=== PATIENT | female | born 1935 | race Two or more races ===

== ENCOUNTER 2019-05-28 21:27 | Inpatient (IN) | payer MEDICAID ==
[~2019-05-28] VITALS: Ht 147.3 cm; Wt 59.4 kg
[2019-05-28] MEDS ORDERED: MECLIZINE HCL 12.5 MG TABLET. PO ONE (22:00)
[2019-05-28] MEDS ORDERED: IV NORMAL SALINE 1000ML BAG 1,000 ML IV SCH (22:00)
[2019-05-28 22:02] LABS: BASO % 1 % (0-3); EOS # 0.1 x10^3/uL (0.0-0.7); EOS % 3 % (0-3); HEMATOCRIT 40.2 % (36.0-47.0); HEMOGLOBIN 13.6 g/dL (12.0-15.5); LYMPH # 1.7 x10^3/uL (1.0-4.8); LYMPH % 41 % (24-48); MEAN CORPUSCULAR HEMOGLOBIN 31 pg (25-35); MEAN CORPUSCULAR HGB CONC 34 g/dL (31-37); MEAN CORPUSCULAR VOLUME 92 fL (79-100); MONO # 0.4 x10^3/uL (0.0-1.1); MONO % 10 % (0-9); NEUT # 1.9 x10^3/uL (1.8-7.7); NEUT % 46 % (31-73); PLATELET COUNT 172 x10^3/uL (140-400); RED BLOOD COUNT 4.37 x10^6/uL (3.50-5.40); RED CELL DISTRIBUTION WIDTH 14.4 % (11.5-14.5); WHITE BLOOD COUNT 4.2 x10^3/uL (4.0-11.0)
[2019-05-28 22:14] LABS: CALCIUM 8.2 mg/dL (8.5-10.1); CREATININE 1.1 mg/dL (0.6-1.0); GFR 47.6; POTASSIUM 4.3 mmol/L (3.5-5.1)
--- NOTE | 2019-05-28 22:15 | PHYS DOC ---
Past Medical History Past Medical History: Arthritis, Hypertension Past Surgical History: No Surgical History Alcohol Use: None Drug Use: None Adult General Chief Complaint Chief Complaint: [facility] Patient is an 83-year-old female who presents with complaint of dizziness and generalized weakness that started about 8:30 tonight. Patient reported that she felt like she was given a pass out. Family was concerned because they thought that maybe patient was having a heart attack. Patient did not have any chest pain. She did feel off balance and a little bit nauseated. She did not vomit however. She does complain of a headache that she is unable to rate on a number scale.[] Review of Systems Review of Systems Constitutional: Denies fever or chills [] Respiratory: Complains of shortness of breath [] Cardiovascular: No additional information not addressed in HPI [] GI: Denies abdominal pain. Complains of nausea without vomiting or diarrhea [] Neurologic: [place] of headache and dizziness without focal weakness or sensory changes [] All other systems were reviewed and found to be within normal limits, except as documented in this note. Current Medications Current Medications Current Medications Medications (Trade) Dose Ordered Sig/[place] Start Time Stop Time Status Last Admin Dose Admin Meclizine HCl (Antivert) 25 mg 1X ONCE 05/28/19 22:00 05/28/19 22:01 DC 05/28/19 21:57 25 MG Sodium Chloride 1,000 ml @ 1,000 mls/hr Q1H 05/28/19 22:00 05/28/19 22:59 DC 05/28/19 21:57 1,000 MLS/HR Allergies Allergies Allergies Coded Allergies Type Severity Reaction Last Updated Verified No Known Drug Allergies 05/28/19 No Physical Exam Physical Exam Constitutional: Well developed, well nourished, no acute distress, non-toxic appearance. [] HENT: Normocephalic, atraumatic, bilateral external ears normal, oropharynx moist, no oral exudates, nose normal. [] Eyes: PERRLA, EOMI, conjunctiva normal, no discharge. [] Neck: Normal range of motion, no tenderness, supple. [] Cardiovascular: Regular rate and rhythm[] Lungs & Thorax: Bilateral breath sounds clear to auscultation [] Abdomen: Bowel sounds normal, soft, no tenderness. [] Skin: Warm, dry, no erythema, no rash. [] Extremities: No tenderness, no cyanosis, no clubbing, ROM intact. [] Neurologic: Awake and alert, normal motor function, normal sensory function, no focal deficits noted. [] Current Patient Data Vital Signs Vital Signs Date Time Temp Pulse Resp B/P (MAP) Pulse Ox O2 Delivery O2 Flow Rate FiO2 05/28/19 21:30 98.0 62 16 199/87 (124) 100 Room Air 98.0 Lab Values Laboratory Tests Test 05/28/19 21:50 05/28/19 22:34 White Blood Count 4.2 x10^3/uL (4.0-11.0) Red Blood Count 4.37 x10^6/uL (3.50-5.40) Hemoglobin 13.6 g/dL (12.0-15.5) Hematocrit 40.2 % (36.0-47.0) Mean Corpuscular Volume 92 fL (79-100) Mean Corpuscular Hemoglobin 31 pg (25-35) Mean Corpuscular Hemoglobin Concent 34 g/dL (31-37) Red Cell Distribution Width 14.4 % (11.5-14.5) Platelet Count 172 x10^3/uL (140-400) Neutrophils (%) (Auto) 46 % (31-73) Lymphocytes (%) (Auto) 41 % (24-48) Monocytes (%) (Auto) 10 % (0-9) H Eosinophils (%) (Auto) 3 % (0-3) Basophils (%) (Auto) 1 % (0-3) Neutrophils # (Auto) 1.9 x10^3/uL (1.8-7.7) Lymphocytes # (Auto) 1.7 x10^3/uL (1.0-4.8) Monocytes # (Auto) 0.4 x10^3/uL (0.0-1.1) Eosinophils # (Auto) 0.1 x10^3/uL (0.0-0.7) Basophils # (Auto) 0.0 x10^3/uL (0.0-0.2) Sodium Level 134 mmol/L (136-145) L Potassium Level 4.3 mmol/L (3.5-5.1) Chloride Level 101 mmol/L (98-107) Carbon Dioxide Level 25 mmol/L (21-32) Anion Gap 8 (6-14) Blood Urea Nitrogen 7 mg/dL (7-20) Creatinine 1.1 mg/dL (0.6-1.0) H Estimated GFR (Cockcroft-Gault) 47.6 BUN/Creatinine Ratio 6 (6-20) Glucose Level 129 mg/dL (70-99) H Calcium Level 8.2 mg/dL (8.5-10.1) L Magnesium Level 1.5 mg/dL (1.8-2.4) L Total Bilirubin 0.7 mg/dL (0.2-1.0) Aspartate Amino Transferase (AST) 39 U/L (15-37) H Alanine Aminotransferase (ALT) 37 U/L (14-59) Alkaline Phosphatase 130 U/L (46-116) H Troponin I Quantitative < 0.017 ng/mL (0.000-0.055) NU-Wsj-G-Type Natriuretic Peptide 407 pg/mL (0-449) Total Protein 7.2 g/dL (6.4-8.2) Albumin 3.8 g/dL (3.4-5.0) Albumin/Globulin Ratio 1.1 (1.0-1.7) Urine Collection Type Unknown Urine Color Yellow Urine Clarity Clear Urine pH 6.0 Urine Specific [place] <=1.005 Urine Protein Negative mg/dL (NEG-TRACE) Urine Glucose (UA) Negative mg/dL (NEG) Urine Ketones (Stick) Negative mg/dL (NEG) Urine Blood Negative (NEG) Urine Nitrite Negative (NEG) Urine Bilirubin Negative (NEG) Urine Urobilinogen Dipstick 0.2 mg/dL (0.2 mg/dL) Urine Leukocyte Esterase Large (NEG) Urine RBC 0 /HPF (0-2) Urine WBC 11-20 /HPF (0-4) Urine Squamous Epithelial Cells Mod /LPF Urine Bacteria Few /HPF (0-FEW) Laboratory Tests 05/28/19 21:50 Laboratory Tests 05/28/19 21:50 EKG EKG [] Interpretation Time: EKG demonstrates sinus rhythm with rate of 62. Radiology/Procedures Radiology/Procedures [] Impressions: PROCEDURE: CT HEAD WO CONTRAST CT HEAD WO CONTRAST History: Headache, dizziness Comparison: None. Technique: Noncontrast CT imaging was performed of the head. Exposure: One or more of the following individualized dose reduction techniques were utilized for this examination: 1. Automated exposure control 2. Adjustment of the mA and/or kV according to patient size 3. Use of iterative reconstruction technique. Findings: There is a focus of hyperdense parenchymal hemorrhage of the right thalamus about 1.2 cm AP by 1 cm transverse with adjacent edema signified by low density. There is a fairly large area of encephalomalacia with cortical involvement centered in the right frontal lobe, also some old lacunar infarcts of the bilateral basal ganglia. There is other multifocal [id number]-fi-[id number] low-density of the supratentorial parenchyma bilaterally. There is no significant midline shift. There is degree of ex vacuo dilatation of the right lateral ventricle. There is some atherosclerotic calcification of the carotid siphons bilaterally, also of the basilar artery and left intradural vertebral artery. There is patchy mild ethmoid air cell mucosal thickening. There is prominent density of the visualized right maxillary sinus, not fully included. Mastoid air cells are aerated. Impression: 1. There is focus of acute hyperdense parenchymal hemorrhage in the right thalamus. There is associated mild edema. 2. There is large old infarct with cortical involvement of the right frontal lobe, also old lacunar infarcts of the bilateral basal ganglia. Other ill-defined low-density of the supratentorial parenchyma is probably due to chronic microvascular ischemic disease in a patient this age. 3. There is prominent density of the visualized right maxillary sinus. Findings discussed with ARMIN IZQUIERDO at 05/28/2019 10:50 PM. FOR INTERNAL CODING PURPOSES RESULT CODE: (C) Electronically signed by: Kemar Whitney MD (05/28/2019 10:50 PM) [facility] Course & Med Decision Making Course & Med Decision Making Pertinent Labs and Imaging studies reviewed. (See chart for details) Patient moved to room upon arrival was evaluated by your medical staff after which workup was initiated to include blood work, chest x-ray and CT of the head without contrast. Patient's CT is returned with findings of acute hemorrhagic stroke in the right thalamus. On-call neurosurgery was contacted and Dr. Collins recommends admission to the ICU. Hospital medicine has been contacted as well and apprised of the patient. Patient will be admitted to ICU under the care of hospitalist services with consult to neurosurgery. Dragon Disclaimer Dragon Disclaimer This electronic medical record was generated, in whole or in part, using a voice recognition dictation system. Departure Departure Impression: Primary Impression: Thalamic hemorrhage with stroke Disposition: ADMITTED INPATIENT Admitting Physician: DAIN Condition: GUARDED ARMIN IZQUIERDO Jr. DO May 28, 2019 22:15
[2019-05-28 22:24] LABS: ALBUMIN 3.8 g/dL (3.4-5.0); ALBUMIN/GLOBULIN RATIO 1.1 (1.0-1.7); MAGNESIUM 1.5 mg/dL (1.8-2.4); TOTAL BILIRUBIN 0.7 mg/dL (0.2-1.0); TOTAL PROTEIN 7.2 g/dL (6.4-8.2)
[2019-05-28 22:40] LABS: BILIRUBIN,URINE NEGATIVE (NEG); CLARITY,URINE CLEAR; COLOR,URINE YELLOW; NITRITE,URINE NEGATIVE (NEG); PROTEIN,URINE NEGATIVE (NEG-TRACE); UROBILINOGEN,URINE 0.2 mg/dL (0.2 mg/dL)
[2019-05-28 22:45] LABS: BACTERIA,URINE FEW /HPF (0-FEW); RBC,URINE 0 /HPF (0-2)
[2019-05-28 22:46] LABS: SQUAMOUS EPITHELIAL CELL,UR MOD /LPF
--- NOTE | 2019-05-28 22:53 | RAD ---
CT HEAD WO CONTRAST History: Headache, dizziness Comparison: None. Technique: Noncontrast CT imaging was performed of the head. Exposure: One or more of the following individualized dose reduction techniques were utilized for this examination: 1. Automated exposure control 2. Adjustment of the mA and/or kV according to patient size 3. Use of iterative reconstruction technique. Findings: There is a focus of hyperdense parenchymal hemorrhage of the right thalamus about 1.2 cm AP by 1 cm transverse with adjacent edema signified by low density. There is a fairly large area of encephalomalacia with cortical involvement centered in the right frontal lobe, also some old lacunar infarcts of the bilateral basal ganglia. There is other multifocal xjrl-en-xfqopsvk low-density of the supratentorial parenchyma bilaterally. There is no significant midline shift. There is degree of ex vacuo dilatation of the right lateral ventricle. There is some atherosclerotic calcification of the carotid siphons bilaterally, also of the basilar artery and left intradural vertebral artery. There is patchy mild ethmoid air cell mucosal thickening. There is prominent density of the visualized right maxillary sinus, not fully included. Mastoid air cells are aerated. Impression: 1. There is focus of acute hyperdense parenchymal hemorrhage in the right thalamus. There is associated mild edema. 2. There is large old infarct with cortical involvement of the right frontal lobe, also old lacunar infarcts of the bilateral basal ganglia. Other ill-defined low-density of the supratentorial parenchyma is probably due to chronic microvascular ischemic disease in a patient this age. 3. There is prominent density of the visualized right maxillary sinus. Findings discussed with ARMIN IZQUIERDO at 05/28/2019 10:50 PM. FOR INTERNAL CODING PURPOSES RESULT CODE: (C) Electronically signed by: Kemar Whitney MD (05/28/2019 10:50 PM) [facility]
[2019-05-28] MEDS ORDERED: fentaNYL PF VIAL 100 MCG/2 ML VIAL IV PRN (23:15)
[2019-05-28] MEDS ORDERED: ONDANSETRON PF 4 MG/2 ML VIAL. IV PRN (23:15)
--- NOTE | 2019-05-28 23:41 | RAD ---
PORTABLE CHEST 1V History: Headache, dizziness Comparison: None. Findings: Single view of the chest is submitted. There is fullness of the right hilum. There is tortuous thoracic aorta. Heart size is upper limits of normal. There is mild interstitial opacity lung bases bilaterally. Trace pleural effusions are not excluded. No pneumothorax is identified. Impression: 1. There is fullness of the right hilum, lymphadenopathy not excluded better evaluated by nonemergent CT. 2. There is mild interstitial opacity near lung bases of uncertain chronicity, could be due to mild interstitial edema. Trace pleural effusions are not excluded. Electronically signed by: Kemar Whitney MD (05/28/2019 11:38 PM) [facility]
[2019-05-29] VITALS (31 sets, daily range): BP systolic 86–195; BP diastolic 44–131
[2019-05-29] MEDS: IV NORMAL SALINE 1000ML BAG 1,000 ML IV SCH ×3 (01:00→16:48)
[2019-05-29] MEDS ORDERED: LOSA-73 PO (02:18)
[2019-05-29] MEDS ORDERED: OMEP20CA10 PO (02:18)
[2019-05-29] MEDS ORDERED: ATOR20TA58 PO (02:18)
--- NOTE | 2019-05-29 03:19 | NUR ---
Patient admitted to room 110 from ED at 0050. Patient moved self from cart to bed. Monitor on, SR noted. Alert and oriented x4 per Rolan Biswas, the patient's son who is translating for patient. Follows commands appropriately. RA. Cardene gtt and MIV fluids infusing per PIV. No c/o pain or discomfort at this time. Call light within reach. Will continue to monitor.
[2019-05-29 05:39] LABS: BASO % 0 % (0-3); EOS # 0.1 x10^3/uL (0.0-0.7); EOS % 3 % (0-3); HEMATOCRIT 42.9 % (36.0-47.0); HEMOGLOBIN 14.6 g/dL (12.0-15.5); LYMPH # 1.2 x10^3/uL (1.0-4.8); LYMPH % 32 % (24-48); MEAN CORPUSCULAR HEMOGLOBIN 31 pg (25-35); MEAN CORPUSCULAR HGB CONC 34 g/dL (31-37); MEAN CORPUSCULAR VOLUME 92 fL (79-100); MONO # 0.3 x10^3/uL (0.0-1.1); MONO % 9 % (0-9); NEUT # 2.1 x10^3/uL (1.8-7.7); NEUT % 56 % (31-73); PLATELET COUNT 161 x10^3/uL (140-400); RED BLOOD COUNT 4.67 x10^6/uL (3.50-5.40); RED CELL DISTRIBUTION WIDTH 14.6 % (11.5-14.5); WHITE BLOOD COUNT 3.7 x10^3/uL (4.0-11.0)
[2019-05-29 05:59] LABS: CALCIUM 8.5 mg/dL (8.5-10.1); CREATININE 0.9 mg/dL (0.6-1.0); GFR 59.9; POTASSIUM 3.7 mmol/L (3.5-5.1)
[2019-05-29] MEDS ORDERED: ACETAMINOPHEN 500 MG TABLET PO PRN (09:15)
[2019-05-29] MEDS ORDERED: LABETALOL 20 MG/4 ML DISP.SYRIN. IVP PRN ×2 (09:15→14:30)
[2019-05-29] MEDS ORDERED: ONDANSETRON PF 4 MG/2 ML VIAL. IV PRN ×2 (09:15→14:30)
--- NOTE | 2019-05-29 09:23 | NUR ---
Notified Dr. Villa of Mg 1.4. Order received to give 2gm Mg IV.
[2019-05-29] MEDS ORDERED: MAGNESIUM SULFATE 2GM 50 ML IV ONE (09:30)
--- NOTE | 2019-05-29 09:38 | RAD ---
CT HEAD WO CONTRAST Indication: Intracranial hemorrhage. Exposure: One or more of the following individualized dose reduction techniques were utilized for this examination: 1. Automated exposure control 2. Adjustment of the mA and/or kV according to patient size 3. Use of iterative reconstruction technique. Technique: Standard imaging without intravenous contrast. Comparison: May 28, 2019. FINDINGS: Hyperdense lesion in the right thalamus compatible with hematoma is again identified measuring 1.2 AP x 1.0 cm wide by 1.4 cm height, stable in AP and lateral dimensions. Mild adjacent low-density compatible with edema is similar. No new mass effect or midline shift is identified. Area of low-density encephalomalacia in the right frontal lobe is again seen. Multiple small periventricular low-dose density foci compatible with lacunar infarcts are again seen. Low-density in the white matter bilaterally, a nonspecific finding, but which is commonly due to chronic small vessel ischemic disease in a patient of this age. Intracranial arterial calcifications. No abnormal extra-axial fluid collection. Orbits appear unremarkable. No significant scalp swelling. Partially visualized sinuses again demonstrate density within the barely visualized right maxillary sinus. Mild ethmoid sinus mucosal thickening. IMPRESSION: Right thalamic hematoma with surrounding edema is not significant changed in appearance. Electronically signed by: Chad Jackson MD (05/29/2019 9:35 AM) [facility]
[2019-05-29] MEDS: LOSARTAN POTASSIUM 50 MG TABLET. PO SCH (10:19)
[2019-05-29] MEDS: PANTOPRAZOLE 40 MG TABLET.DR. PO SCH (10:20)
--- NOTE | 2019-05-29 11:20 | PDOC ---
Provider Note Provider Note patient seen and examined in ICU c/o headaches exam:loss of vision right eye, chronic, no focal neuro deficit hypertensive, on Cardene CT head reviewed, no change in right thalamic hemorrhage old right frontal infarct BP control consult Charli and neurology non surgical will follow EVY SANDOVAL MD May 29, 2019 11:20
--- NOTE | 2019-05-29 11:47 | PDOC1 ---
History and Physical Date of Admission Date of Admission DATE: 05/29/19 TIME: 11:42 Identification/Chief Complaint Chief Complaint headache, dizzy Source Source: Caregiver, Chart review, Patient History of Present Illness History of Present Illness 83 female who only speaks K[place], but fam at bedside translates for me, dizzy and headaches yesterday and cont today so went to ER and found to have small brain hemorrhage with some mild edema and hTN emergency still needing cardene gtt at icu, She has old large ischemic infarct with huge encephalomalacia that familyu is unaware of, She ambulates well at home, I reconciled home meds thsi AM and she was able to swallow pills fine per RN. Still needing ICU bec on cardene gtt but ok to eat, NON surgical per neurosx. WIll also consult neurology. NO ASA, blood thinners etc pls My neuro exam is non focal Past Medical History Cardiovascular: HTN Past Surgical History Past Surgical History: No pertinent history Family History Family History: Hypertension Social History Smoke: No ALCOHOL: none Drugs: None Current Problem List Problem List Problems Medical Problems: (1) Thalamic hemorrhage with stroke Status: Acute Current Medications Current Medications Current Medications Sodium Chloride 1,000 ml @ 1,000 mls/hr Q1H IV Last administered on 05/28/19at 21:57; Start 05/28/19 at 22:00; Stop 05/28/19 at 22:59; Status DC Meclizine HCl (Antivert) 25 mg 1X ONCE PO Last administered on 05/28/19at 21:57; Start 05/28/19 at 22:00; Stop 05/28/19 at 22:01; Status DC Ondansetron HCl (Zofran) 4 mg PRN Q8HRS PRN IV NAUSEA/VOMITING 1ST CHOICE; Start 05/28/19 at 23:15; Stop 05/29/19 at 09:12; Status DC Fentanyl Citrate (Fentanyl 2ml Vial) 25 mcg PRN Q1HR PRN IV SEVERE PAIN 7-10; Start 05/28/19 at 23:15; Stop 05/29/19 at 23:14 Sodium Chloride 1,000 ml @ 100 mls/hr Q10H IV Last administered on 05/29/19at 05:18; Start 05/28/19 at 23:30; Stop 05/29/19 at 23:29 Nicardipine HCl 50 mg/Sodium Chloride 250 ml @ 25 mls/hr CONT PRN IV SEE I/O RECORD Last administered on 05/29/19at 00:17; Start 05/29/19 at 00:15 Magnesium Sulfate 50 ml @ 25 mls/hr 1X ONCE IV Last administered on 05/29/19at 10:20; Start 05/29/19 at 09:30; Stop 05/29/19 at 11:29; Status DC Ondansetron HCl (Zofran) 4 mg PRN Q6HRS PRN IV NAUSEA/VOMITING 1ST CHOICE; Start 05/29/19 at 09:15 Acetaminophen (Tylenol) 500 mg PRN Q6HRS PRN PO MILD PAIN / TEMP; Start 05/29/19 at 09:15 Labetalol HCl (Normodyne Iv Push) 20 mg PRN Q2HR PRN IVP HYPERTENSION; Start 05/29/19 at 09:15 Atorvastatin Calcium (Lipitor) 20 mg QHS PO ; Start 05/29/19 at 21:00 Losartan Potassium (Cozaar) 50 mg DAILY PO Last administered on 05/29/19at 10:20; Start 05/29/19 at 10:00 Pantoprazole Sodium (Protonix) 40 mg DAILYAC PO Last administered on 05/29/19at 10:20; Start 05/29/19 at 10:00 Active Scripts Active Reported Omeprazole 20 Mg Capsule. 1 Cap PO DAILY Losartan Potassium 50 Mg Tablet 50 Mg PO DAILY Atorvastatin Calcium 20 Mg Tablet 1 Tab PO DAILY Allergies Allergies: Coded Allergies: No Known Drug Allergies (Unverified , 05/28/19) ROS Review of System headache, dizzy, the rest 14 pt neg Physical Exam General: Alert, Oriented X3, Cooperative, No acute distress HEENT: Atraumatic, PERRLA, EOMI Lungs: Clear to auscultation, Normal air movement Heart: S1S2, RRR, no thrills, no rubs, no gallops, no murmurs Cardiovascular: S1, S2 Breasts: Normal, Rt breast nml w/o mass, Lt breast nml w/o mass, Nipples normal Abdomen: Normal bowel sounds, Soft, No tenderness, No hepatosplenomegaly, No masses Rectal Exam: not examined PELVIC: Nml ext genitalia Extremities: No clubbing, No cyanosis, No edema, Normal pulses, No tenderness/swelling Skin: No rashes, No breakdown, No significant lesion Neuro: Normal gait, Normal speech, Strength at 5/5 X4 ext, Normal tone, Sensation intact, Cranial nerves 3-12 NL, Reflexes 2+ Psych/Mental Status: Mental status NL, Mood NL Vitals Vitals Vital Signs Date Time Temp Pulse Resp B/P (MAP) Pulse Ox O2 Delivery O2 Flow Rate FiO2 05/29/19 11:00 96 16 151/80 (103) 97 Room Air 05/29/19 07:00 97.7 97.7 Labs Labs Laboratory Tests Test 05/28/19 21:50 05/28/19 22:34 05/29/19 04:30 05/29/19 05:00 White Blood Count 4.2 x10^3/uL (4.0-11.0) 3.7 x10^3/uL (4.0-11.0) Red Blood Count 4.37 x10^6/uL (3.50-5.40) 4.67 x10^6/uL (3.50-5.40) Hemoglobin 13.6 g/dL (12.0-15.5) 14.6 g/dL (12.0-15.5) Hematocrit 40.2 % (36.0-47.0) 42.9 % (36.0-47.0) Mean Corpuscular Volume 92 fL (79-100) 92 fL (79-100) Mean Corpuscular Hemoglobin 31 pg (25-35) 31 pg (25-35) Mean Corpuscular Hemoglobin Concent 34 g/dL (31-37) 34 g/dL (31-37) Red Cell Distribution Width 14.4 % (11.5-14.5) 14.6 % (11.5-14.5) Platelet Count 172 x10^3/uL (140-400) 161 x10^3/uL (140-400) Neutrophils (%) (Auto) 46 % (31-73) 56 % (31-73) Lymphocytes (%) (Auto) 41 % (24-48) 32 % (24-48) Monocytes (%) (Auto) 10 % (0-9) 9 % (0-9) Eosinophils (%) (Auto) 3 % (0-3) 3 % (0-3) Basophils (%) (Auto) 1 % (0-3) 0 % (0-3) Neutrophils # (Auto) 1.9 x10^3/uL (1.8-7.7) 2.1 x10^3/uL (1.8-7.7) Lymphocytes # (Auto) 1.7 x10^3/uL (1.0-4.8) 1.2 x10^3/uL (1.0-4.8) Monocytes # (Auto) 0.4 x10^3/uL (0.0-1.1) 0.3 x10^3/uL (0.0-1.1) Eosinophils # (Auto) 0.1 x10^3/uL (0.0-0.7) 0.1 x10^3/uL (0.0-0.7) Basophils # (Auto) 0.0 x10^3/uL (0.0-0.2) 0.0 x10^3/uL (0.0-0.2) Sodium Level 134 mmol/L (136-145) 140 mmol/L (136-145) Potassium Level 4.3 mmol/L (3.5-5.1) 3.7 mmol/L (3.5-5.1) Chloride Level 101 mmol/L (98-107) 104 mmol/L (98-107) Carbon Dioxide Level 25 mmol/L (21-32) 23 mmol/L (21-32) Anion Gap 8 (6-14) 13 (6-14) Blood Urea Nitrogen 7 mg/dL (7-20) 6 mg/dL (7-20) Creatinine 1.1 mg/dL (0.6-1.0) 0.9 mg/dL (0.6-1.0) Estimated GFR (Cockcroft-Gault) 47.6 59.9 BUN/Creatinine Ratio 6 (6-20) Glucose Level 129 mg/dL (70-99) 115 mg/dL (70-99) Calcium Level 8.2 mg/dL (8.5-10.1) 8.5 mg/dL (8.5-10.1) Magnesium Level 1.5 mg/dL (1.8-2.4) 1.4 mg/dL (1.8-2.4) Total Bilirubin 0.7 mg/dL (0.2-1.0) Aspartate Amino Transf (AST/SGOT) 39 U/L (15-37) Alanine Aminotransferase (ALT/SGPT) 37 U/L (14-59) Alkaline Phosphatase 130 U/L (46-116) Troponin I Quantitative < 0.017 ng/mL (0.000-0.055) [place]-Kam-N-Type Natriuretic Peptide 407 pg/mL (0-449) Total Protein 7.2 g/dL (6.4-8.2) Albumin 3.8 g/dL (3.4-5.0) Albumin/Globulin Ratio 1.1 (1.0-1.7) Urine Collection Type Unknown Urine Color Yellow Urine Clarity Clear Urine pH 6.0 Urine Specific [place] <=1.005 Urine Protein Negative mg/dL (NEG-TRACE) Urine Glucose (UA) Negative mg/dL (NEG) Urine Ketones (Stick) Negative mg/dL (NEG) Urine Blood Negative (NEG) Urine Nitrite Negative (NEG) Urine Bilirubin Negative (NEG) Urine Urobilinogen Dipstick 0.2 mg/dL (0.2 mg/dL) Urine Leukocyte Esterase Large (NEG) Urine RBC 0 /HPF (0-2) Urine WBC 11-20 /HPF (0-4) Urine Squamous Epithelial Cells Mod /LPF Urine Bacteria Few /HPF (0-FEW) Laboratory Tests Test 05/28/19 21:50 05/28/19 22:34 05/29/19 04:30 05/29/19 05:00 White Blood Count 4.2 x10^3/uL (4.0-11.0) 3.7 x10^3/uL (4.0-11.0) Red Blood Count 4.37 x10^6/uL (3.50-5.40) 4.67 x10^6/uL (3.50-5.40) Hemoglobin 13.6 g/dL (12.0-15.5) 14.6 g/dL (12.0-15.5) Hematocrit 40.2 % (36.0-47.0) 42.9 % (36.0-47.0) Mean Corpuscular Volume 92 fL (79-100) 92 fL (79-100) Mean Corpuscular Hemoglobin 31 pg (25-35) 31 pg (25-35) Mean Corpuscular Hemoglobin Concent 34 g/dL (31-37) 34 g/dL (31-37) Red Cell Distribution Width 14.4 % (11.5-14.5) 14.6 % (11.5-14.5) Platelet Count 172 x10^3/uL (140-400) 161 x10^3/uL (140-400) Neutrophils (%) (Auto) 46 % (31-73) 56 % (31-73) Lymphocytes (%) (Auto) 41 % (24-48) 32 % (24-48) Monocytes (%) (Auto) 10 % (0-9) 9 % (0-9) Eosinophils (%) (Auto) 3 % (0-3) 3 % (0-3) Basophils (%) (Auto) 1 % (0-3) 0 % (0-3) Neutrophils # (Auto) 1.9 x10^3/uL (1.8-7.7) 2.1 x10^3/uL (1.8-7.7) Lymphocytes # (Auto) 1.7 x10^3/uL (1.0-4.8) 1.2 x10^3/uL (1.0-4.8) Monocytes # (Auto) 0.4 x10^3/uL (0.0-1.1) 0.3 x10^3/uL (0.0-1.1) Eosinophils # (Auto) 0.1 x10^3/uL (0.0-0.7) 0.1 x10^3/uL (0.0-0.7) Basophils # (Auto) 0.0 x10^3/uL (0.0-0.2) 0.0 x10^3/uL (0.0-0.2) Sodium Level 134 mmol/L (136-145) 140 mmol/L (136-145) Potassium Level 4.3 mmol/L (3.5-5.1) 3.7 mmol/L (3.5-5.1) Chloride Level 101 mmol/L (98-107) 104 mmol/L (98-107) Carbon Dioxide Level 25 mmol/L (21-32) 23 mmol/L (21-32) Anion Gap 8 (6-14) 13 (6-14) Blood Urea Nitrogen 7 mg/dL (7-20) 6 mg/dL (7-20) Creatinine 1.1 mg/dL (0.6-1.0) 0.9 mg/dL (0.6-1.0) Estimated GFR (Cockcroft-Gault) 47.6 59.9 BUN/Creatinine Ratio 6 (6-20) Glucose Level 129 mg/dL (70-99) 115 mg/dL (70-99) Calcium Level 8.2 mg/dL (8.5-10.1) 8.5 mg/dL (8.5-10.1) Magnesium Level 1.5 mg/dL (1.8-2.4) 1.4 mg/dL (1.8-2.4) Total Bilirubin 0.7 mg/dL (0.2-1.0) Aspartate Amino Transf (AST/SGOT) 39 U/L (15-37) Alanine Aminotransferase (ALT/SGPT) 37 U/L (14-59) Alkaline Phosphatase 130 U/L (46-116) Troponin I Quantitative < 0.017 ng/mL (0.000-0.055) GJ-Enq-O-Type Natriuretic Peptide 407 pg/mL (0-449) Total Protein 7.2 g/dL (6.4-8.2) Albumin 3.8 g/dL (3.4-5.0) Albumin/Globulin Ratio 1.1 (1.0-1.7) Urine Collection Type Unknown Urine Color Yellow Urine Clarity Clear Urine pH 6.0 Urine Specific [place] <=1.005 Urine Protein Negative mg/dL (NEG-TRACE) Urine Glucose (UA) Negative mg/dL (NEG) Urine Ketones (Stick) Negative mg/dL (NEG) Urine Blood Negative (NEG) Urine Nitrite Negative (NEG) Urine Bilirubin Negative (NEG) Urine Urobilinogen Dipstick 0.2 mg/dL (0.2 mg/dL) Urine Leukocyte Esterase Large (NEG) Urine RBC 0 /HPF (0-2) Urine WBC 11-20 /HPF (0-4) Urine Squamous Epithelial Cells Mod /LPF Urine Bacteria Few /HPF (0-FEW) VTE Prophylaxis Ordered VTE Prophylaxis Devices: Contraindicated VTE Pharmacological Prophylaxi: Contraindicated Assessment/Plan Assessment/Plan small hemorrhagic CVA OLd large ischemic cva with encephalomalacia but clinically no residuals HTN emergency POA MOd PCM Plan: 2MN KEep icu bec cardene gtt Interval CT head Consult neurosx and neurology Control BP PT/.OT Ok to eat I ahve reconciled home BP meds (she runs high usually per son relay) Dw BARGE HAND at bedside and son cc 30 VIVIEN VILLANUEVA MD May 29, 2019 11:47
--- NOTE | 2019-05-29 14:19 | PDOC2 ---
NEUROLOGY CONSULT Date of Admission Date of Admission DATE: 05/29/19 TIME: 14:12 Reason for Consult Reason for Consult: Thalamic hemorrhage Referring Physician Referring Physician: Dr. Amaya Source Source: Chart review History of Present Illness History of Present Illness The patient is an 83-year-old female came to the emergency department last night with dizziness, headaches, and weakness. 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 No seizures have been noted. Family is not available when I see the patient. Past Medical History Cardiovascular: HTN, Hyperlipidemia GI: GERD Musculoskeletal: Osteoarthritis Past Surgical History Past Surgical History: No pertinent history Family History Family History: Other (unobtainable) Current Medications Current Medications Current Medications Sodium Chloride 1,000 ml @ 1,000 mls/hr Q1H IV Last administered on 05/28/19at 21:57; Start 05/28/19 at 22:00; Stop 05/28/19 at 22:59; Status DC Meclizine HCl (Antivert) 25 mg 1X ONCE PO Last administered on 05/28/19at 21:57; Start 05/28/19 at 22:00; Stop 05/28/19 at 22:01; Status DC Ondansetron HCl (Zofran) 4 mg PRN Q8HRS PRN IV NAUSEA/VOMITING 1ST CHOICE; Start 05/28/19 at 23:15; Stop 05/29/19 at 09:12; Status DC Fentanyl Citrate (Fentanyl 2ml Vial) 25 mcg PRN Q1HR PRN IV SEVERE PAIN 7-10; Start 05/28/19 at 23:15; Stop 05/29/19 at 23:14 Sodium Chloride 1,000 ml @ 100 mls/hr Q10H IV Last administered on 05/29/19at 05:18; Start 05/28/19 at 23:30; Stop 05/29/19 at 23:29 Nicardipine HCl 50 mg/Sodium Chloride 250 ml @ 25 mls/hr CONT PRN IV SEE I/O RECORD Last administered on 05/29/19at 00:17; Start 05/29/19 at 00:15 Magnesium Sulfate 50 ml @ 25 mls/hr 1X ONCE IV Last administered on 05/29/19at 10:20; Start 05/29/19 at 09:30; Stop 05/29/19 at 11:29; Status DC Ondansetron HCl (Zofran) 4 mg PRN Q6HRS PRN IV NAUSEA/VOMITING 1ST CHOICE; Start 05/29/19 at 09:15 Acetaminophen (Tylenol) 500 mg PRN Q6HRS PRN PO MILD PAIN / TEMP; Start 05/29/19 at 09:15 Labetalol HCl (Normodyne Iv Push) 20 mg PRN Q2HR PRN IVP HYPERTENSION; Start 05/29/19 at 09:15 Atorvastatin Calcium (Lipitor) 20 mg QHS PO ; Start 05/29/19 at 21:00 Losartan Potassium (Cozaar) 50 mg DAILY PO Last administered on 05/29/19at 10:20; Start 05/29/19 at 10:00 Pantoprazole Sodium (Protonix) 40 mg DAILYAC PO Last administered on 05/29/19at 10:20; Start 05/29/19 at 10:00 Active Scripts Active Reported Omeprazole 20 Mg Capsule.dr 1 Cap PO DAILY Losartan Potassium 50 Mg Tablet 50 Mg PO DAILY Atorvastatin Calcium 20 Mg Tablet 1 Tab PO DAILY Allergies Allergies: Coded Allergies: No Known Drug Allergies (Unverified , 05/28/19) ROS Review of System unobtainable Physical Exam Physical Examination General: Well-developed, well-nourished female in no acute distress HEENT: Normocephalic and�atraumatic.Temporal arteries�pulsatile and nontender.� Neck: Supple without bruit, no meningismus� Musculoskeletal: Stability:�see neurologic. Gait exam:�see neurologic. Tone:�see neurologic.�Strength:�see neurologic.� Neurological: Mental Status:�orientation, memory, attention span/concentration, language, fund of knowledge: follows pantomimed commands, does not speak [place]. Cranial Nerves:�Pupils equal and reactive to light, extraocular movements are�intact, visual wilde are full to threat. Reported right-eye vision loss not found. Facial sensation is normal. There is no facial asymmetry. Vestibulo-ocular reflex is intact. Palate elevates and tongue protrudes in midline. All other cranial related problems are negative except as mentioned before.�Reflexes:�2+ and symmetric with flexor plantar responses. Motor:�4/5 strength with normal tone and bulk. Coordination:�Finger-nose finger and hjjk-es-eoje testing are normal. Poorly cooperative with rapid alternating movements and fine finger movements are intact. Gait:�not tested. Sensory:�Normal pinprick, vibration, light touch, proprioception.� Vitals VITALS Vital Signs Date Time Temp Pulse Resp B/P (MAP) Pulse Ox O2 Delivery O2 Flow Rate FiO2 05/29/19 13:00 70 16 107/60 (76) 96 Room Air 05/29/19 12:00 98.3 98.3 Labs Labs Laboratory Tests Test 05/28/19 21:50 05/28/19 22:34 05/29/19 04:30 05/29/19 05:00 White Blood Count 4.2 x10^3/uL (4.0-11.0) 3.7 x10^3/uL (4.0-11.0) Red Blood Count 4.37 x10^6/uL (3.50-5.40) 4.67 x10^6/uL (3.50-5.40) Hemoglobin 13.6 g/dL (12.0-15.5) 14.6 g/dL (12.0-15.5) Hematocrit 40.2 % (36.0-47.0) 42.9 % (36.0-47.0) Mean Corpuscular Volume 92 fL (79-100) 92 fL (79-100) Mean Corpuscular Hemoglobin 31 pg (25-35) 31 pg (25-35) Mean Corpuscular Hemoglobin Concent 34 g/dL (31-37) 34 g/dL (31-37) Red Cell Distribution Width 14.4 % (11.5-14.5) 14.6 % (11.5-14.5) Platelet Count 172 x10^3/uL (140-400) 161 x10^3/uL (140-400) Neutrophils (%) (Auto) 46 % (31-73) 56 % (31-73) Lymphocytes (%) (Auto) 41 % (24-48) 32 % (24-48) Monocytes (%) (Auto) 10 % (0-9) 9 % (0-9) Eosinophils (%) (Auto) 3 % (0-3) 3 % (0-3) Basophils (%) (Auto) 1 % (0-3) 0 % (0-3) Neutrophils # (Auto) 1.9 x10^3/uL (1.8-7.7) 2.1 x10^3/uL (1.8-7.7) Lymphocytes # (Auto) 1.7 x10^3/uL (1.0-4.8) 1.2 x10^3/uL (1.0-4.8) Monocytes # (Auto) 0.4 x10^3/uL (0.0-1.1) 0.3 x10^3/uL (0.0-1.1) Eosinophils # (Auto) 0.1 x10^3/uL (0.0-0.7) 0.1 x10^3/uL (0.0-0.7) Basophils # (Auto) 0.0 x10^3/uL (0.0-0.2) 0.0 x10^3/uL (0.0-0.2) Sodium Level 134 mmol/L (136-145) 140 mmol/L (136-145) Potassium Level 4.3 mmol/L (3.5-5.1) 3.7 mmol/L (3.5-5.1) Chloride Level 101 mmol/L (98-107) 104 mmol/L (98-107) Carbon Dioxide Level 25 mmol/L (21-32) 23 mmol/L (21-32) Anion Gap 8 (6-14) 13 (6-14) Blood Urea Nitrogen 7 mg/dL (7-20) 6 mg/dL (7-20) Creatinine 1.1 mg/dL (0.6-1.0) 0.9 mg/dL (0.6-1.0) Estimated GFR (Cockcroft-Gault) 47.6 59.9 BUN/Creatinine Ratio 6 (6-20) Glucose Level 129 mg/dL (70-99) 115 mg/dL (70-99) Calcium Level 8.2 mg/dL (8.5-10.1) 8.5 mg/dL (8.5-10.1) Magnesium Level 1.5 mg/dL (1.8-2.4) 1.4 mg/dL (1.8-2.4) Total Bilirubin 0.7 mg/dL (0.2-1.0) Aspartate Amino Transf (AST/SGOT) 39 U/L (15-37) Alanine Aminotransferase (ALT/SGPT) 37 U/L (14-59) Alkaline Phosphatase 130 U/L (46-116) Troponin I Quantitative < 0.017 ng/mL (0.000-0.055) UH-Vyo-F-Type Natriuretic Peptide 407 pg/mL (0-449) Total Protein 7.2 g/dL (6.4-8.2) Albumin 3.8 g/dL (3.4-5.0) Albumin/Globulin Ratio 1.1 (1.0-1.7) Urine Collection Type Unknown Urine Color Yellow Urine Clarity Clear Urine pH 6.0 Urine Specific [place] <=1.005 Urine Protein Negative mg/dL (NEG-TRACE) Urine Glucose (UA) Negative mg/dL (NEG) Urine Ketones (Stick) Negative mg/dL (NEG) Urine Blood Negative (NEG) Urine Nitrite Negative (NEG) Urine Bilirubin Negative (NEG) Urine Urobilinogen Dipstick 0.2 mg/dL (0.2 mg/dL) Urine Leukocyte Esterase Large (NEG) Urine RBC 0 /HPF (0-2) Urine WBC 11-20 /HPF (0-4) Urine Squamous Epithelial Cells Mod /LPF Urine Bacteria Few /HPF (0-FEW) Laboratory Tests Test 05/28/19 21:50 05/28/19 22:34 05/29/19 04:30 05/29/19 05:00 White Blood Count 4.2 x10^3/uL (4.0-11.0) 3.7 x10^3/uL (4.0-11.0) Red Blood Count 4.37 x10^6/uL (3.50-5.40) 4.67 x10^6/uL (3.50-5.40) Hemoglobin 13.6 g/dL (12.0-15.5) 14.6 g/dL (12.0-15.5) Hematocrit 40.2 % (36.0-47.0) 42.9 % (36.0-47.0) Mean Corpuscular Volume 92 fL (79-100) 92 fL (79-100) Mean Corpuscular Hemoglobin 31 pg (25-35) 31 pg (25-35) Mean Corpuscular Hemoglobin Concent 34 g/dL (31-37) 34 g/dL (31-37) Red Cell Distribution Width 14.4 % (11.5-14.5) 14.6 % (11.5-14.5) Platelet Count 172 x10^3/uL (140-400) 161 x10^3/uL (140-400) Neutrophils (%) (Auto) 46 % (31-73) 56 % (31-73) Lymphocytes (%) (Auto) 41 % (24-48) 32 % (24-48) Monocytes (%) (Auto) 10 % (0-9) 9 % (0-9) Eosinophils (%) (Auto) 3 % (0-3) 3 % (0-3) Basophils (%) (Auto) 1 % (0-3) 0 % (0-3) Neutrophils # (Auto) 1.9 x10^3/uL (1.8-7.7) 2.1 x10^3/uL (1.8-7.7) Lymphocytes # (Auto) 1.7 x10^3/uL (1.0-4.8) 1.2 x10^3/uL (1.0-4.8) Monocytes # (Auto) 0.4 x10^3/uL (0.0-1.1) 0.3 x10^3/uL (0.0-1.1) Eosinophils # (Auto) 0.1 x10^3/uL (0.0-0.7) 0.1 x10^3/uL (0.0-0.7) Basophils # (Auto) 0.0 x10^3/uL (0.0-0.2) 0.0 x10^3/uL (0.0-0.2) Sodium Level 134 mmol/L (136-145) 140 mmol/L (136-145) Potassium Level 4.3 mmol/L (3.5-5.1) 3.7 mmol/L (3.5-5.1) Chloride Level 101 mmol/L (98-107) 104 mmol/L (98-107) Carbon Dioxide Level 25 mmol/L (21-32) 23 mmol/L (21-32) Anion Gap 8 (6-14) 13 (6-14) Blood Urea Nitrogen 7 mg/dL (7-20) 6 mg/dL (7-20) Creatinine 1.1 mg/dL (0.6-1.0) 0.9 mg/dL (0.6-1.0) Estimated GFR (Cockcroft-Gault) 47.6 59.9 BUN/Creatinine Ratio 6 (6-20) Glucose Level 129 mg/dL (70-99) 115 mg/dL (70-99) Calcium Level 8.2 mg/dL (8.5-10.1) 8.5 mg/dL (8.5-10.1) Magnesium Level 1.5 mg/dL (1.8-2.4) 1.4 mg/dL (1.8-2.4) Total Bilirubin 0.7 mg/dL (0.2-1.0) Aspartate Amino Transf (AST/SGOT) 39 U/L (15-37) Alanine Aminotransferase (ALT/SGPT) 37 U/L (14-59) Alkaline Phosphatase 130 U/L (46-116) Troponin I Quantitative < 0.017 ng/mL (0.000-0.055) FF-Tiz-G-Type Natriuretic Peptide 407 pg/mL (0-449) Total Protein 7.2 g/dL (6.4-8.2) Albumin 3.8 g/dL (3.4-5.0) Albumin/Globulin Ratio 1.1 (1.0-1.7) Urine Collection Type Unknown Urine Color Yellow Urine Clarity Clear Urine pH 6.0 Urine Specific [place] <=1.005 Urine Protein Negative mg/dL (NEG-TRACE) Urine Glucose (UA) Negative mg/dL (NEG) Urine Ketones (Stick) Negative mg/dL (NEG) Urine Blood Negative (NEG) Urine Nitrite Negative (NEG) Urine Bilirubin Negative (NEG) Urine Urobilinogen Dipstick 0.2 mg/dL (0.2 mg/dL) Urine Leukocyte Esterase Large (NEG) Urine RBC 0 /HPF (0-2) Urine WBC 11-20 /HPF (0-4) Urine Squamous Epithelial Cells Mod /LPF Urine Bacteria Few /HPF (0-FEW) Images Images CT HEAD WO CONTRAST 05/28 History: Headache, dizziness Comparison: None. Technique: Noncontrast CT imaging was performed of the head. Exposure: One or more of the following individualized dose reduction techniques were utilized for this examination: 1. Automated exposure control 2. Adjustment of the mA and/or kV according to patient size 3. Use of iterative reconstruction technique. Findings: There is a focus of hyperdense parenchymal hemorrhage of the right thalamus about 1.2 cm AP by 1 cm transverse with adjacent edema signified by low density. There is a fairly large area of encephalomalacia with cortical involvement centered in the right frontal lobe, also some old lacunar infarcts of the bilateral basal ganglia. There is other multifocal iaot-pe-wauvatlz low-density of the supratentorial parenchyma bilaterally. There is no significant midline shift. There is degree of ex vacuo dilatation of the right lateral ventricle. There is some atherosclerotic calcification of the carotid siphons bilaterally, also of the basilar artery and left intradural vertebral artery. There is patchy mild ethmoid air cell mucosal thickening. There is prominent density of the visualized right maxillary sinus, not fully included. Mastoid air cells are aerated. Impression: 1. There is focus of acute hyperdense parenchymal hemorrhage in the right thalamus. There is associated mild edema. 2. There is large old infarct with cortical involvement of the right frontal lobe, also old lacunar infarcts of the bilateral basal ganglia. Other ill-defined low-density of the supratentorial parenchyma is probably due to chronic microvascular ischemic disease in a patient this age. 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 Possibly transfer to floor tomorrow depending on her status. Thank you for letting me help with the patient�s care. MARIAMA COLÓN MD May 29, 2019 14:19
[2019-05-29] MEDS ORDERED: PHARMACY TO REVIEW MEDS MC PRN (14:30)
[2019-05-29] MEDS ORDERED: hydrALAZINE 20 MG/ML VIAL. IVP PRN (14:30)
[2019-05-29] MEDS ORDERED: ACETAMINOPHEN 650 MG SUPP.RECT. PR PRN (14:30)
--- NOTE | 2019-05-29 15:38 | NUR ---
Patient refuses tray brought by dietary. Informed son that patient refused tray. Son states that she doesn't like the food. I explained that she didn't even look at it. Son states that she doesn't like [place] food but provides her with [employer] food.
--- NOTE | 2019-05-29 17:53 | NUR ---
Dr. Garcia notified of inability to get accurate NIH stroke score on patient d/t language barrier and son not accurately translating the instructions to the patient. 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 Dizziness is resolving according to the son and the headache is still there but is improving a little.
--- NOTE | 2019-05-29 17:57 | NUR ---
Patient declines hospital dinner tray and son states that the patient will eat the food that he has brought in.
[2019-05-29] MEDS: ATORVASTATIN CALCIUM 20 MG TABLET PO SCH (21:24)
[2019-05-30] VITALS (13 sets, daily range): BP systolic 90–135; BP diastolic 56–90
--- NOTE | 2019-05-30 04:41 | NUR ---
NIH scale was performed with the assistance of clinic charge nurse [place]if[place]. This RN speaks hmong and was able to communicate with pt. Pt score a 2 on the assessment. Will communicate information to day shift RN to relate to Dr. Garcia today. Will continue to monitor pt closely.
[2019-05-30 04:51] LABS: BASO % 1 % (0-3); EOS # 0.1 x10^3/uL (0.0-0.7); EOS % 3 % (0-3); HEMATOCRIT 41.4 % (36.0-47.0); HEMOGLOBIN 13.8 g/dL (12.0-15.5); LYMPH # 1.8 x10^3/uL (1.0-4.8); LYMPH % 41 % (24-48); MEAN CORPUSCULAR HEMOGLOBIN 31 pg (25-35); MEAN CORPUSCULAR HGB CONC 33 g/dL (31-37); MEAN CORPUSCULAR VOLUME 93 fL (79-100); MONO # 0.4 x10^3/uL (0.0-1.1); MONO % 8 % (0-9); NEUT % 47 % (31-73); PLATELET COUNT 174 x10^3/uL (140-400); RED BLOOD COUNT 4.46 x10^6/uL (3.50-5.40); RED CELL DISTRIBUTION WIDTH 14.4 % (11.5-14.5); WHITE BLOOD COUNT 4.3 x10^3/uL (4.0-11.0)
[2019-05-30 05:42] LABS: CALCIUM 8.6 mg/dL (8.5-10.1); CREATININE 1.2 mg/dL (0.6-1.0); POTASSIUM 3.9 mmol/L (3.5-5.1)
[2019-05-30 05:53] LABS: CHOLESTEROL/HDL RATIO 2.8
[2019-05-30] MEDS: PANTOPRAZOLE 40 MG TABLET.DR. PO SCH (08:24)
[2019-05-30] MEDS: LOSARTAN POTASSIUM 50 MG TABLET. PO SCH (08:25)
--- NOTE | 2019-05-30 09:29 | PDOC ---
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 NO trouble swallowing cont losartan 50 once a day Labetalol when necessary Vitals Vitals Vital Signs Date Time Temp Pulse Resp B/P (MAP) Pulse Ox O2 Delivery O2 Flow Rate FiO2 05/30/19 09:17 81 18 133/90 (104) 94 Room Air 05/30/19 07:00 97.8 97.8 Physical Exam General: Alert, Oriented X3, Cooperative, No acute distress Abdomen: Normal bowel sounds, Soft, No tenderness, No hepatosplenomegaly, No masses Extremities: No clubbing, No cyanosis, No edema, Normal pulses, No tenderness/swelling Skin: No rashes, No breakdown, No significant lesion Labs LABS Laboratory Tests Test 05/29/19 17:11 05/30/19 04:30 Magnesium Level 2.3 mg/dL (1.8-2.4) White Blood Count 4.3 x10^3/uL (4.0-11.0) Red Blood Count 4.46 x10^6/uL (3.50-5.40) Hemoglobin 13.8 g/dL (12.0-15.5) Hematocrit 41.4 % (36.0-47.0) Mean Corpuscular Volume 93 fL (79-100) Mean Corpuscular Hemoglobin 31 pg (25-35) Mean Corpuscular Hemoglobin Concent 33 g/dL (31-37) Red Cell Distribution Width 14.4 % (11.5-14.5) Platelet Count 174 x10^3/uL (140-400) Neutrophils (%) (Auto) 47 % (31-73) Lymphocytes (%) (Auto) 41 % (24-48) Monocytes (%) (Auto) 8 % (0-9) Eosinophils (%) (Auto) 3 % (0-3) Basophils (%) (Auto) 1 % (0-3) Neutrophils # (Auto) 2.0 x10^3/uL (1.8-7.7) Lymphocytes # (Auto) 1.8 x10^3/uL (1.0-4.8) Monocytes # (Auto) 0.4 x10^3/uL (0.0-1.1) Eosinophils # (Auto) 0.1 x10^3/uL (0.0-0.7) Basophils # (Auto) 0.0 x10^3/uL (0.0-0.2) Sodium Level 140 mmol/L (136-145) Potassium Level 3.9 mmol/L (3.5-5.1) Chloride Level 104 mmol/L (98-107) Carbon Dioxide Level 24 mmol/L (21-32) Anion Gap 12 (6-14) Blood Urea Nitrogen 11 mg/dL (7-20) Creatinine 1.2 mg/dL (0.6-1.0) Estimated GFR (Cockcroft-Gault) 43.0 Glucose Level 93 mg/dL (70-99) Calcium Level 8.6 mg/dL (8.5-10.1) Triglycerides Level 122 mg/dL (0-150) Cholesterol Level 117 mg/dL (0-200) LDL Cholesterol, Calculated 51 mg/dL (0-100) VLDL Cholesterol, Calculated 24 mg/dL (0-40) Non-HDL Cholesterol Calculated 75 mg/dL (0-129) HDL Cholesterol 42 mg/dL (40-60) Cholesterol/HDL Ratio 2.8 Review of Systems Review of Systems A 14 point ROS was completed with the following noted as positive: Other systems reviewed and negative. \CONSTITUTIONAL: No fever or chills EYES: No recent changes SKIN: No rash or itching CARDIOVASCULAR: No chest pain, syncope, palpitations, or edema RESPIRATORY: No SOB or cough GASTROINTESTINAL: No nausea, vomiting or abdominal pain NEUROLOGICAL: No headaches or weakness ENDOCRINE: No cold or heat intolerance GENITOURINARY: No urgency or frequency of urination MUSCULOSKELETAL: No back pain or joint pain LYMPHATICS: No enlarged lymph nodes PSYCHIATRIC: No anxiety or depression Assessment and Plan Assessmemt and Plan Problems Medical Problems: (1) Thalamic hemorrhage with stroke Status: Acute Comment Review of Relevant I have reviewed the following items luzmaria (where applicable) has been applied. Labs Laboratory Tests Test 05/28/19 21:50 05/28/19 22:34 05/29/19 04:30 05/29/19 05:00 White Blood Count 4.2 x10^3/uL (4.0-11.0) 3.7 x10^3/uL (4.0-11.0) Red Blood Count 4.37 x10^6/uL (3.50-5.40) 4.67 x10^6/uL (3.50-5.40) Hemoglobin 13.6 g/dL (12.0-15.5) 14.6 g/dL (12.0-15.5) Hematocrit 40.2 % (36.0-47.0) 42.9 % (36.0-47.0) Mean Corpuscular Volume 92 fL (79-100) 92 fL (79-100) Mean Corpuscular Hemoglobin 31 pg (25-35) 31 pg (25-35) Mean Corpuscular Hemoglobin Concent 34 g/dL (31-37) 34 g/dL (31-37) Red Cell Distribution Width 14.4 % (11.5-14.5) 14.6 % (11.5-14.5) Platelet Count 172 x10^3/uL (140-400) 161 x10^3/uL (140-400) Neutrophils (%) (Auto) 46 % (31-73) 56 % (31-73) Lymphocytes (%) (Auto) 41 % (24-48) 32 % (24-48) Monocytes (%) (Auto) 10 % (0-9) 9 % (0-9) Eosinophils (%) (Auto) 3 % (0-3) 3 % (0-3) Basophils (%) (Auto) 1 % (0-3) 0 % (0-3) Neutrophils # (Auto) 1.9 x10^3/uL (1.8-7.7) 2.1 x10^3/uL (1.8-7.7) Lymphocytes # (Auto) 1.7 x10^3/uL (1.0-4.8) 1.2 x10^3/uL (1.0-4.8) Monocytes # (Auto) 0.4 x10^3/uL (0.0-1.1) 0.3 x10^3/uL (0.0-1.1) Eosinophils # (Auto) 0.1 x10^3/uL (0.0-0.7) 0.1 x10^3/uL (0.0-0.7) Basophils # (Auto) 0.0 x10^3/uL (0.0-0.2) 0.0 x10^3/uL (0.0-0.2) Sodium Level 134 mmol/L (136-145) 140 mmol/L (136-145) Potassium Level 4.3 mmol/L (3.5-5.1) 3.7 mmol/L (3.5-5.1) Chloride Level 101 mmol/L (98-107) 104 mmol/L (98-107) Carbon Dioxide Level 25 mmol/L (21-32) 23 mmol/L (21-32) Anion Gap 8 (6-14) 13 (6-14) Blood Urea Nitrogen 7 mg/dL (7-20) 6 mg/dL (7-20) Creatinine 1.1 mg/dL (0.6-1.0) 0.9 mg/dL (0.6-1.0) Estimated GFR (Cockcroft-Gault) 47.6 59.9 BUN/Creatinine Ratio 6 (6-20) Glucose Level 129 mg/dL (70-99) 115 mg/dL (70-99) Calcium Level 8.2 mg/dL (8.5-10.1) 8.5 mg/dL (8.5-10.1) Magnesium Level 1.5 mg/dL (1.8-2.4) 1.4 mg/dL (1.8-2.4) Total Bilirubin 0.7 mg/dL (0.2-1.0) Aspartate Amino Transf (AST/SGOT) 39 U/L (15-37) Alanine Aminotransferase (ALT/SGPT) 37 U/L (14-59) Alkaline Phosphatase 130 U/L (46-116) Troponin I Quantitative < 0.017 ng/mL (0.000-0.055) CL-Kyy-Y-Type Natriuretic Peptide 407 pg/mL (0-449) Total Protein 7.2 g/dL (6.4-8.2) Albumin 3.8 g/dL (3.4-5.0) Albumin/Globulin Ratio 1.1 (1.0-1.7) Urine Collection Type Unknown Urine Color Yellow Urine Clarity Clear Urine pH 6.0 Urine Specific Dubois <=1.005 Urine Protein Negative mg/dL (NEG-TRACE) Urine Glucose (UA) Negative mg/dL (NEG) Urine Ketones (Stick) Negative mg/dL (NEG) Urine Blood Negative (NEG) Urine Nitrite Negative (NEG) Urine Bilirubin Negative (NEG) Urine Urobilinogen Dipstick 0.2 mg/dL (0.2 mg/dL) Urine Leukocyte Esterase Large (NEG) Urine RBC 0 /HPF (0-2) Urine WBC 11-20 /HPF (0-4) Urine Squamous Epithelial Cells Mod /LPF Urine Bacteria Few /HPF (0-FEW) Test 05/29/19 17:11 05/30/19 04:30 Magnesium Level 2.3 mg/dL (1.8-2.4) White Blood Count 4.3 x10^3/uL (4.0-11.0) Red Blood Count 4.46 x10^6/uL (3.50-5.40) Hemoglobin 13.8 g/dL (12.0-15.5) Hematocrit 41.4 % (36.0-47.0) Mean Corpuscular Volume 93 fL (79-100) Mean Corpuscular Hemoglobin 31 pg (25-35) Mean Corpuscular Hemoglobin Concent 33 g/dL (31-37) Red Cell Distribution Width 14.4 % (11.5-14.5) Platelet Count 174 x10^3/uL (140-400) Neutrophils (%) (Auto) 47 % (31-73) Lymphocytes (%) (Auto) 41 % (24-48) Monocytes (%) (Auto) 8 % (0-9) Eosinophils (%) (Auto) 3 % (0-3) Basophils (%) (Auto) 1 % (0-3) Neutrophils # (Auto) 2.0 x10^3/uL (1.8-7.7) Lymphocytes # (Auto) 1.8 x10^3/uL (1.0-4.8) Monocytes # (Auto) 0.4 x10^3/uL (0.0-1.1) Eosinophils # (Auto) 0.1 x10^3/uL (0.0-0.7) Basophils # (Auto) 0.0 x10^3/uL (0.0-0.2) Sodium Level 140 mmol/L (136-145) Potassium Level 3.9 mmol/L (3.5-5.1) Chloride Level 104 mmol/L (98-107) Carbon Dioxide Level 24 mmol/L (21-32) Anion Gap 12 (6-14) Blood Urea Nitrogen 11 mg/dL (7-20) Creatinine 1.2 mg/dL (0.6-1.0) Estimated GFR (Cockcroft-Gault) 43.0 Glucose Level 93 mg/dL (70-99) Calcium Level 8.6 mg/dL (8.5-10.1) Triglycerides Level 122 mg/dL (0-150) Cholesterol Level 117 mg/dL (0-200) LDL Cholesterol, Calculated 51 mg/dL (0-100) VLDL Cholesterol, Calculated 24 mg/dL (0-40) Non-HDL Cholesterol Calculated 75 mg/dL (0-129) HDL Cholesterol 42 mg/dL (40-60) Cholesterol/HDL Ratio 2.8 Laboratory Tests Test 05/29/19 17:11 05/30/19 04:30 Magnesium Level 2.3 mg/dL (1.8-2.4) White Blood Count 4.3 x10^3/uL (4.0-11.0) Red Blood Count 4.46 x10^6/uL (3.50-5.40) Hemoglobin 13.8 g/dL (12.0-15.5) Hematocrit 41.4 % (36.0-47.0) Mean Corpuscular Volume 93 fL (79-100) Mean Corpuscular Hemoglobin 31 pg (25-35) Mean Corpuscular Hemoglobin Concent 33 g/dL (31-37) Red Cell Distribution Width 14.4 % (11.5-14.5) Platelet Count 174 x10^3/uL (140-400) Neutrophils (%) (Auto) 47 % (31-73) Lymphocytes (%) (Auto) 41 % (24-48) Monocytes (%) (Auto) 8 % (0-9) Eosinophils (%) (Auto) 3 % (0-3) Basophils (%) (Auto) 1 % (0-3) Neutrophils # (Auto) 2.0 x10^3/uL (1.8-7.7) Lymphocytes # (Auto) 1.8 x10^3/uL (1.0-4.8) Monocytes # (Auto) 0.4 x10^3/uL (0.0-1.1) Eosinophils # (Auto) 0.1 x10^3/uL (0.0-0.7) Basophils # (Auto) 0.0 x10^3/uL (0.0-0.2) Sodium Level 140 mmol/L (136-145) Potassium Level 3.9 mmol/L (3.5-5.1) Chloride Level 104 mmol/L (98-107) Carbon Dioxide Level 24 mmol/L (21-32) Anion Gap 12 (6-14) Blood Urea Nitrogen 11 mg/dL (7-20) Creatinine 1.2 mg/dL (0.6-1.0) Estimated GFR (Cockcroft-Gault) 43.0 Glucose Level 93 mg/dL (70-99) Calcium Level 8.6 mg/dL (8.5-10.1) Triglycerides Level 122 mg/dL (0-150) Cholesterol Level 117 mg/dL (0-200) LDL Cholesterol, Calculated 51 mg/dL (0-100) VLDL Cholesterol, Calculated 24 mg/dL (0-40) Non-HDL Cholesterol Calculated 75 mg/dL (0-129) HDL Cholesterol 42 mg/dL (40-60) Cholesterol/HDL Ratio 2.8 Medications Current Medications Sodium Chloride 1,000 ml @ 1,000 mls/hr Q1H IV Last administered on 05/28/19at 21:57; Start 05/28/19 at 22:00; Stop 05/28/19 at 22:59; Status DC Meclizine HCl (Antivert) 25 mg 1X ONCE PO Last administered on 05/28/19at 21:57; Start 05/28/19 at 22:00; Stop 05/28/19 at 22:01; Status DC Ondansetron HCl (Zofran) 4 mg PRN Q8HRS PRN IV NAUSEA/VOMITING 1ST CHOICE; Start 05/28/19 at 23:15; Stop 05/29/19 at 09:12; Status DC Fentanyl Citrate (Fentanyl 2ml Vial) 25 mcg PRN Q1HR PRN IV SEVERE PAIN 7-10; Start 05/28/19 at 23:15; Stop 05/29/19 at 23:14; Status DC Sodium Chloride 1,000 ml @ 100 mls/hr Q10H IV Last administered on 05/29/19at 16:48; Start 05/28/19 at 23:30; Stop 05/29/19 at 17:12; Status DC Nicardipine HCl 50 mg/Sodium Chloride 250 ml @ 25 mls/hr CONT PRN IV SEE I/O RECORD Last administered on 05/29/19at 00:17; Start 05/29/19 at 00:15; Stop 05/29/19 at 14:24; Status DC Magnesium Sulfate 50 ml @ 25 mls/hr 1X ONCE IV Last administered on 05/29/19at 10:20; Start 05/29/19 at 09:30; Stop 05/29/19 at 11:29; Status DC Ondansetron HCl (Zofran) 4 mg PRN Q6HRS PRN IV NAUSEA/VOMITING 1ST CHOICE; Start 05/29/19 at 09:15; Stop 05/29/19 at 14:24; Status DC Acetaminophen (Tylenol) 500 mg PRN Q6HRS PRN PO MILD PAIN / TEMP Last administered on 05/29/19at 21:24; Start 05/29/19 at 09:15 Labetalol HCl (Normodyne Iv Push) 20 mg PRN Q2HR PRN IVP HYPERTENSION; Start 05/29/19 at 09:15; Stop 05/29/19 at 14:24; Status DC Atorvastatin Calcium (Lipitor) 20 mg QHS PO Last administered on 05/29/19at 21:24; Start 05/29/19 at 21:00 Losartan Potassium (Cozaar) 50 mg DAILY PO Last administered on 05/30/19at 08:25; Start 05/29/19 at 10:00 Pantoprazole Sodium (Protonix) 40 mg DAILYAC PO Last administered on 05/30/19at 08:25; Start 05/29/19 at 10:00 Info (Review Meds) 1 ea PRN 1X PRN MC SEE COMMENTS; Start 05/29/19 at 14:30 Acetaminophen (Tylenol Supp) 650 mg PRN Q6HRS PRN MO FEVER > 100.5'F; Start 05/29/19 at 14:30 Labetalol HCl (Normodyne Iv Push) 10 mg PRN Q10MIN PRN IVP HYPERTENSION, 1ST CHOICE Last administered on 05/29/19at 15:29; Start 05/29/19 at 14:30 Hydralazine HCl (Apresoline Inj) 10 mg PRN Q10MIN PRN IVP HYPERTENSION, 2ND CHOICE; Start 05/29/19 at 14:30 Nicardipine HCl 50 mg/Sodium Chloride 250 ml @ 25 mls/hr CONT PRN IV HYPERTENSION; Start 05/29/19 at 14:30 Ondansetron HCl (Zofran) 4 mg PRN Q6HRS PRN IV NAUSEA/VOMITING; Start 05/29/19 at 14:30 Active Scripts Active Reported Omeprazole 20 Mg Capsule.dr 1 Cap PO DAILY Losartan Potassium 50 Mg Tablet 50 Mg PO DAILY Atorvastatin Calcium 20 Mg Tablet 1 Tab PO DAILY Vitals/I & O Vital Sign - Last 24 Hours 05/29/19 05/29/19 05/29/19 05/29/19 10:00 10:20 11:00 12:00 Pulse 88 92 96 Resp 16 16 B/P (MAP) 125/82 (96) 102/65 151/80 (103) Pulse Ox 97 97 O2 Delivery Room Air Room Air Room Air 05/29/19 05/29/19 05/29/19 05/29/19 12:00 12:38 13:00 14:00 Temp 98.3 98.3 Pulse 88 88 70 78 Resp 16 16 16 16 B/P (MAP) 108/65 (79) 91/69 (76) 107/60 (76) 144/77 (99) Pulse Ox 97 98 96 98 O2 Delivery Room Air Room Air Room Air Room Air 05/29/19 05/29/19 05/29/19 05/29/19 15:00 15:29 15:45 16:00 Pulse 81 85 81 Resp 16 16 B/P (MAP) 167/90 (115) 167/87 120/71 (87) Pulse Ox 95 95 O2 Delivery Room Air Room Air Room Air 05/29/19 05/29/19 05/29/19 05/29/19 17:00 18:00 19:00 20:00 Temp 97.9 97.9 97.9 97.9 Pulse 80 81 83 Resp 14 14 16 B/P (MAP) 121/78 (92) 120/71 (87) 105/66 (79) Pulse Ox 98 98 96 O2 Delivery Room Air Room Air Room Air Room Air 05/29/19 05/29/19 05/29/19 05/29/19 20:00 21:00 22:00 23:02 Temp 97.9 97.9 97.9 97.9 Pulse 84 75 65 76 Resp 16 18 16 16 B/P (MAP) 90/71 (77) 110/83 (92) 86/48 (61) 93/44 (60) Pulse Ox 97 99 98 98 O2 Delivery Room Air Room Air Room Air Room Air 05/29/19 05/30/19 05/30/19 05/30/19 23:51 00:17 00:49 01:48 Temp 97.9 97.9 Pulse 74 68 65 Resp 16 16 16 B/P (MAP) 97/59 (72) 90/56 (67) 123/68 (86) Pulse Ox 98 97 96 O2 Delivery Room Air Room Air Room Air Room Air 05/30/19 05/30/19 05/30/19 05/30/19 02:52 03:34 04:00 04:46 Temp 97.9 98.0 97.9 98.0 Pulse 65 74 64 Resp 16 16 16 B/P (MAP) 97/64 (75) 116/65 (82) 116/75 (89) Pulse Ox 97 97 98 O2 Delivery Room Air Room Air Room Air Room Air 05/30/19 05/30/19 05/30/19 05/30/19 05:55 07:00 08:00 08:00 Temp 98.0 97.8 98.0 97.8 Pulse 68 62 68 Resp 18 20 18 B/P (MAP) 135/83 (100) 99/60 (73) 122/76 (91) Pulse Ox 98 98 98 O2 Delivery Room Air Room Air Room Air Room Air 05/30/19 05/30/19 08:25 09:17 Pulse 72 81 Resp 18 B/P (MAP) 122/76 133/90 (104) Pulse Ox 94 O2 Delivery Room Air Intake and Output 05/29/19 05/29/19 05/30/19 14:59 22:59 06:59 Intake Total 0 ml 1522 ml 180 ml Output Total 200 ml Balance -200 ml 1522 ml 180 ml VIVIEN VILLANUEVA MD May 30, 2019 09:29
[2019-05-30] MEDS ORDERED: IOHEXOL 300 MG/ML 100ML VIAL. IV ONE (10:45)
[2019-05-30] MEDS ORDERED: CONTRAST GIVEN. MC PRN (11:00)
--- NOTE | 2019-05-30 12:31 | RAD ---
MR of the brain without contrast HISTORY: Right thalamic hemorrhage. TECHNIQUE: Axial T1-weighted, T2-weighted, FLAIR, gradient echo, diffusion-weighted, coronal T2-weighted and sagittal T1-weighted images are obtained. COMPARISON: None. Correlation with CT head of May 29. FINDINGS: Small focal area of increased T1 signal with surrounding mild T2/FLAIR edema signal is identified in the right thalamus, corresponding with the hematoma identified on CT scan. No evidence of acute intracranial infarction. No other areas of acute intracranial hemorrhage or abnormal extra-axial fluid collection or identified. Large area of CSF signal in the right frontal lobe compatible with encephalomalacia is identified, correlating with the CT findings. There is generalized atrophy. Diffuse and confluent white matter T2 and FLAIR signal is seen bilaterally, nonspecific but often due to chronic small vessel ischemic disease. Major intracranial vasculature demonstrates the expected flow void. Orbits appear unremarkable. Mucosal thickening of the right maxillary sinus. IMPRESSION: 1. Small right thalamic hematoma with surrounding edema, similar to what was seen on CT scan. 2. Large area of encephalomalacia in the right frontal lobe, correlates with CT finding. 3. Hyperintense FLAIR/T2 signal in the white matter bilaterally, nonspecific but often due to chronic small vessel ischemic disease. 4. Right maxillary sinus disease. Electronically signed by: Chad Jackson MD (05/30/2019 12:28 PM) [facility]
--- NOTE | 2019-05-30 12:31 | RAD ---
CT ANGIOGRAPHY HEAD AND NECK Indication: Right thalamic hemorrhage. Exposure: One or more of the following individualized dose reduction techniques were utilized for this examination: 1. Automated exposure control 2. Adjustment of the mA and/or kV according to patient size 3. Use of iterative reconstruction technique. TECHNIQUE: Standard imaging obtained after intravenous contrast. MIP reconstructions were obtained. All carotid stenosis measurements are in conformance with NASCET-type methodology. Comparison: None are available. NECK: Mild atherosclerotic changes of the right carotid artery without occlusion or high-grade stenosis. There is some focal narrowing of the right proximal common carotid artery and an area of tortuosity. The right vertebral artery is patent in the neck. Mild atherosclerotic calcification of the left carotid artery which is patent. Left vertebral artery is patent. HEAD: Intracranial vascularity is grossly symmetric. Calcifications of the intracranial carotid arteries which are patent. Middle cerebral arteries are mildly irregular, likely of atherosclerotic etiology but grossly patent. Anterior cerebral arteries are patent. The right vertebral artery is very diminutive, with a dominant left vertebral artery. The right and left P1 segments are absent or hypoplastic, with origin of the posterior cerebral arteries bilaterally. 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 Series 4, image [id number]. There is mild widening of the terminal left internal carotid artery, could indicate a small fusiform aneurysm, series 4, image [id number]. There is no evidence of vascular malformation. No abnormal enhancement is seen in the expected location of the thalamic bleed. Nonvascular findings: Limited due to technique which was dedicated towards arterial evaluation. Lung apices demonstrate no consolidating infiltrate. Irregularity of the wall of the partially seen ascending aorta, likely pulsatility artifact. Ascending aorta measures 3.2 cm diameter compatible with mild ectasia. Irregular right thyroid mass measuring 15 mm with some associated calcification. Study is not protocoled for intracranial evaluation, the thalamic bleed is not well seen. Degenerative spondylosis of the spine. IMPRESSION: 1. Atherosclerotic changes without evidence of large vessel occlusive disease. 2. 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 3. 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 4. No abnormal enhancement in the region of the right thalamic bleed. 5. Right thyroid mass, could be further evaluated sonographically. Electronically signed by: Chad Jackson MD (05/30/2019 12:28 PM) [facility]
--- NOTE | 2019-05-30 13:26 | PDOC ---
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 Gonzalez Await echocardiogram Rehab Transfer to floor Subjective none Objective Vital Signs Date Time Temp Pulse Resp B/P (MAP) Pulse Ox O2 Delivery O2 Flow Rate FiO2 05/30/19 11:00 97.9 64 18 131/62 (85) 95 Room Air 97.9 Intake and Output 05/30/19 07:00 Intake Total 1702 ml Balance 1702 ml Intake Oral 550 ml IV Total 1152 ml # Voids 8 # Bowel Movements 2 PHYSICAL EXAM Physical Exam: Alert. Does not speak Kiswahili, follows pantomimed exam, Hmong-speaking nurse got NIH 2 for not knowing month or age PERRL. EOMI. CN: no focal findings. Muscle tone: normal. Muscle strength: 4/5 DTR: 2+ Plantar reflex: flexor Gait: not examined in bed. Sensory exam: no abnormal findings. No cerebellar signs elicited. Review of Relevant I have reviewed the following items luzmaria (where applicable) has been applied. Labs Laboratory Tests Test 05/28/19 21:50 05/28/19 22:34 05/29/19 04:30 05/29/19 05:00 White Blood Count 4.2 x10^3/uL (4.0-11.0) 3.7 x10^3/uL (4.0-11.0) Red Blood Count 4.37 x10^6/uL (3.50-5.40) 4.67 x10^6/uL (3.50-5.40) Hemoglobin 13.6 g/dL (12.0-15.5) 14.6 g/dL (12.0-15.5) Hematocrit 40.2 % (36.0-47.0) 42.9 % (36.0-47.0) Mean Corpuscular Volume 92 fL (79-100) 92 fL (79-100) Mean Corpuscular Hemoglobin 31 pg (25-35) 31 pg (25-35) Mean Corpuscular Hemoglobin Concent 34 g/dL (31-37) 34 g/dL (31-37) Red Cell Distribution Width 14.4 % (11.5-14.5) 14.6 % (11.5-14.5) Platelet Count 172 x10^3/uL (140-400) 161 x10^3/uL (140-400) Neutrophils (%) (Auto) 46 % (31-73) 56 % (31-73) Lymphocytes (%) (Auto) 41 % (24-48) 32 % (24-48) Monocytes (%) (Auto) 10 % (0-9) 9 % (0-9) Eosinophils (%) (Auto) 3 % (0-3) 3 % (0-3) Basophils (%) (Auto) 1 % (0-3) 0 % (0-3) Neutrophils # (Auto) 1.9 x10^3/uL (1.8-7.7) 2.1 x10^3/uL (1.8-7.7) Lymphocytes # (Auto) 1.7 x10^3/uL (1.0-4.8) 1.2 x10^3/uL (1.0-4.8) Monocytes # (Auto) 0.4 x10^3/uL (0.0-1.1) 0.3 x10^3/uL (0.0-1.1) Eosinophils # (Auto) 0.1 x10^3/uL (0.0-0.7) 0.1 x10^3/uL (0.0-0.7) Basophils # (Auto) 0.0 x10^3/uL (0.0-0.2) 0.0 x10^3/uL (0.0-0.2) Sodium Level 134 mmol/L (136-145) 140 mmol/L (136-145) Potassium Level 4.3 mmol/L (3.5-5.1) 3.7 mmol/L (3.5-5.1) Chloride Level 101 mmol/L (98-107) 104 mmol/L (98-107) Carbon Dioxide Level 25 mmol/L (21-32) 23 mmol/L (21-32) Anion Gap 8 (6-14) 13 (6-14) Blood Urea Nitrogen 7 mg/dL (7-20) 6 mg/dL (7-20) Creatinine 1.1 mg/dL (0.6-1.0) 0.9 mg/dL (0.6-1.0) Estimated GFR (Cockcroft-Gault) 47.6 59.9 BUN/Creatinine Ratio 6 (6-20) Glucose Level 129 mg/dL (70-99) 115 mg/dL (70-99) Calcium Level 8.2 mg/dL (8.5-10.1) 8.5 mg/dL (8.5-10.1) Magnesium Level 1.5 mg/dL (1.8-2.4) 1.4 mg/dL (1.8-2.4) Total Bilirubin 0.7 mg/dL (0.2-1.0) Aspartate Amino Transf (AST/SGOT) 39 U/L (15-37) Alanine Aminotransferase (ALT/SGPT) 37 U/L (14-59) Alkaline Phosphatase 130 U/L (46-116) Troponin I Quantitative < 0.017 ng/mL (0.000-0.055) II-Aqh-R-Type Natriuretic Peptide 407 pg/mL (0-449) Total Protein 7.2 g/dL (6.4-8.2) Albumin 3.8 g/dL (3.4-5.0) Albumin/Globulin Ratio 1.1 (1.0-1.7) Urine Collection Type Unknown Urine Color Yellow Urine Clarity Clear Urine pH 6.0 Urine Specific [place] <=1.005 Urine Protein Negative mg/dL (NEG-TRACE) Urine Glucose (UA) Negative mg/dL (NEG) Urine Ketones (Stick) Negative mg/dL (NEG) Urine Blood Negative (NEG) Urine Nitrite Negative (NEG) Urine Bilirubin Negative (NEG) Urine Urobilinogen Dipstick 0.2 mg/dL (0.2 mg/dL) Urine Leukocyte Esterase Large (NEG) Urine RBC 0 /HPF (0-2) Urine WBC 11-20 /HPF (0-4) Urine Squamous Epithelial Cells Mod /LPF Urine Bacteria Few /HPF (0-FEW) Test 05/29/19 17:11 05/30/19 04:30 Magnesium Level 2.3 mg/dL (1.8-2.4) White Blood Count 4.3 x10^3/uL (4.0-11.0) Red Blood Count 4.46 x10^6/uL (3.50-5.40) Hemoglobin 13.8 g/dL (12.0-15.5) Hematocrit 41.4 % (36.0-47.0) Mean Corpuscular Volume 93 fL (79-100) Mean Corpuscular Hemoglobin 31 pg (25-35) Mean Corpuscular Hemoglobin Concent 33 g/dL (31-37) Red Cell Distribution Width 14.4 % (11.5-14.5) Platelet Count 174 x10^3/uL (140-400) Neutrophils (%) (Auto) 47 % (31-73) Lymphocytes (%) (Auto) 41 % (24-48) Monocytes (%) (Auto) 8 % (0-9) Eosinophils (%) (Auto) 3 % (0-3) Basophils (%) (Auto) 1 % (0-3) Neutrophils # (Auto) 2.0 x10^3/uL (1.8-7.7) Lymphocytes # (Auto) 1.8 x10^3/uL (1.0-4.8) Monocytes # (Auto) 0.4 x10^3/uL (0.0-1.1) Eosinophils # (Auto) 0.1 x10^3/uL (0.0-0.7) Basophils # (Auto) 0.0 x10^3/uL (0.0-0.2) Sodium Level 140 mmol/L (136-145) Potassium Level 3.9 mmol/L (3.5-5.1) Chloride Level 104 mmol/L (98-107) Carbon Dioxide Level 24 mmol/L (21-32) Anion Gap 12 (6-14) Blood Urea Nitrogen 11 mg/dL (7-20) Creatinine 1.2 mg/dL (0.6-1.0) Estimated GFR (Cockcroft-Gault) 43.0 Glucose Level 93 mg/dL (70-99) Calcium Level 8.6 mg/dL (8.5-10.1) Triglycerides Level 122 mg/dL (0-150) Cholesterol Level 117 mg/dL (0-200) LDL Cholesterol, Calculated 51 mg/dL (0-100) VLDL Cholesterol, Calculated 24 mg/dL (0-40) Non-HDL Cholesterol Calculated 75 mg/dL (0-129) HDL Cholesterol 42 mg/dL (40-60) Cholesterol/HDL Ratio 2.8 Laboratory Tests Test 05/29/19 17:11 9/1/19 04:30 Magnesium Level 2.3 mg/dL (1.8-2.4) White Blood Count 4.3 x10^3/uL (4.0-11.0) Red Blood Count 4.46 x10^6/uL (3.50-5.40) Hemoglobin 13.8 g/dL (12.0-15.5) Hematocrit 41.4 % (36.0-47.0) Mean Corpuscular Volume 93 fL (79-100) Mean Corpuscular Hemoglobin 31 pg (25-35) Mean Corpuscular Hemoglobin Concent 33 g/dL (31-37) Red Cell Distribution Width 14.4 % (11.5-14.5) Platelet Count 174 x10^3/uL (140-400) Neutrophils (%) (Auto) 47 % (31-73) Lymphocytes (%) (Auto) 41 % (24-48) Monocytes (%) (Auto) 8 % (0-9) Eosinophils (%) (Auto) 3 % (0-3) Basophils (%) (Auto) 1 % (0-3) Neutrophils # (Auto) 2.0 x10^3/uL (1.8-7.7) Lymphocytes # (Auto) 1.8 x10^3/uL (1.0-4.8) Monocytes # (Auto) 0.4 x10^3/uL (0.0-1.1) Eosinophils # (Auto) 0.1 x10^3/uL (0.0-0.7) Basophils # (Auto) 0.0 x10^3/uL (0.0-0.2) Sodium Level 140 mmol/L (136-145) Potassium Level 3.9 mmol/L (3.5-5.1) Chloride Level 104 mmol/L (98-107) Carbon Dioxide Level 24 mmol/L (21-32) Anion Gap 12 (6-14) Blood Urea Nitrogen 11 mg/dL (7-20) Creatinine 1.2 mg/dL (0.6-1.0) Estimated GFR (Cockcroft-Gault) 43.0 Glucose Level 93 mg/dL (70-99) Calcium Level 8.6 mg/dL (8.5-10.1) Triglycerides Level 122 mg/dL (0-150) Cholesterol Level 117 mg/dL (0-200) LDL Cholesterol, Calculated 51 mg/dL (0-100) VLDL Cholesterol, Calculated 24 mg/dL (0-40) Non-HDL Cholesterol Calculated 75 mg/dL (0-129) HDL Cholesterol 42 mg/dL (40-60) Cholesterol/HDL Ratio 2.8 Medications Current Medications Sodium Chloride 1,000 ml @ 1,000 mls/hr Q1H IV Last administered on 05/28/19at 21:57; Start 05/28/19 at 22:00; Stop 05/28/19 at 22:59; Status DC Meclizine HCl (Antivert) 25 mg 1X ONCE PO Last administered on 05/28/19at 21:57; Start 05/28/19 at 22:00; Stop 05/28/19 at 22:01; Status DC Ondansetron HCl (Zofran) 4 mg PRN Q8HRS PRN IV NAUSEA/VOMITING 1ST CHOICE; Start 05/28/19 at 23:15; Stop 05/29/19 at 09:12; Status DC Fentanyl Citrate (Fentanyl 2ml Vial) 25 mcg PRN Q1HR PRN IV SEVERE PAIN 7-10; Start 05/28/19 at 23:15; Stop 05/29/19 at 23:14; Status DC Sodium Chloride 1,000 ml @ 100 mls/hr Q10H IV Last administered on 05/29/19at 16:48; Start 05/28/19 at 23:30; Stop 05/29/19 at 17:12; Status DC Nicardipine HCl 50 mg/Sodium Chloride 250 ml @ 25 mls/hr CONT PRN IV SEE I/O RECORD Last administered on 05/29/19at 00:17; Start 05/29/19 at 00:15; Stop 05/29/19 at 14:24; Status DC Magnesium Sulfate 50 ml @ 25 mls/hr 1X ONCE IV Last administered on 05/29/19at 10:20; Start 05/29/19 at 09:30; Stop 05/29/19 at 11:29; Status DC Ondansetron HCl (Zofran) 4 mg PRN Q6HRS PRN IV NAUSEA/VOMITING 1ST CHOICE; Start 05/29/19 at 09:15; Stop 05/29/19 at 14:24; Status DC Acetaminophen (Tylenol) 500 mg PRN Q6HRS PRN PO MILD PAIN / TEMP Last administered on 05/29/19at 21:24; Start 05/29/19 at 09:15 Labetalol HCl (Normodyne Iv Push) 20 mg PRN Q2HR PRN IVP HYPERTENSION; Start 05/29/19 at 09:15; Stop 05/29/19 at 14:24; Status DC Atorvastatin Calcium (Lipitor) 20 mg QHS PO Last administered on 05/29/19at 21:24; Start 05/29/19 at 21:00 Losartan Potassium (Cozaar) 50 mg DAILY PO Last administered on 05/30/19at 08:25; Start 05/29/19 at 10:00 Pantoprazole Sodium (Protonix) 40 mg DAILYAC PO Last administered on 05/30/19at 08:25; Start 05/29/19 at 10:00 Info (Review Meds) 1 ea PRN 1X PRN MC SEE COMMENTS; Start 05/29/19 at 14:30 Acetaminophen (Tylenol Supp) 650 mg PRN Q6HRS PRN MT FEVER > 100.5'F; Start 05/29/19 at 14:30 Labetalol HCl (Normodyne Iv Push) 10 mg PRN Q10MIN PRN IVP HYPERTENSION, 1ST CHOICE Last administered on 05/29/19at 15:29; Start 05/29/19 at 14:30 Hydralazine HCl (Apresoline Inj) 10 mg PRN Q10MIN PRN IVP HYPERTENSION, 2ND CHOICE; Start 05/29/19 at 14:30 Nicardipine HCl 50 mg/Sodium Chloride 250 ml @ 25 mls/hr CONT PRN IV HYPERTENSION; Start 05/29/19 at 14:30; Stop 05/30/19 at 09:25; Status DC Ondansetron HCl (Zofran) 4 mg PRN Q6HRS PRN IV NAUSEA/VOMITING; Start 05/29/19 at 14:30 Iohexol (Omnipaque 300 Mg/ml) 60 ml 1X ONCE IV ; Start 05/30/19 at 10:45; Stop 05/30/19 at 10:48; Status DC Info (CONTRAST GIVEN -- Rx MONITORING) 1 each PRN DAILY PRN MC SEE COMMENTS; Start 05/30/19 at 11:00; Stop 9/3/19 at 10:59 Active Scripts Active Reported Omeprazole 20 Mg Capsule.dr 1 Cap PO DAILY Losartan Potassium 50 Mg Tablet 50 Mg PO DAILY Atorvastatin Calcium 20 Mg Tablet 1 Tab PO DAILY Vitals/I & O Vital Sign - Last 24 Hours 05/29/19 05/29/19 05/29/19 05/29/19 14:00 15:00 15:29 15:45 Pulse 78 81 85 81 Resp 16 16 16 B/P (MAP) 144/77 (99) 167/90 (115) 167/87 120/71 (87) Pulse Ox 98 95 95 O2 Delivery Room Air Room Air Room Air 05/29/19 05/29/19 05/29/19 05/29/19 16:00 17:00 18:00 19:00 Temp 97.9 97.9 97.9 97.9 Pulse 80 81 83 Resp 14 14 16 B/P (MAP) 121/78 (92) 120/71 (87) 105/66 (79) Pulse Ox 98 98 96 O2 Delivery Room Air Room Air Room Air Room Air 05/29/19 05/29/19 05/29/19 05/29/19 20:00 20:00 21:00 22:00 Temp 97.9 97.9 97.9 97.9 Pulse 84 75 65 Resp 16 18 16 B/P (MAP) 90/71 (77) 110/83 (92) 86/48 (61) Pulse Ox 97 99 98 O2 Delivery Room Air Room Air Room Air Room Air 05/29/19 05/29/19 05/30/19 05/30/19 23:02 23:51 00:17 00:49 Temp 97.9 97.9 Pulse 76 74 68 Resp 16 16 16 B/P (MAP) 93/44 (60) 97/59 (72) 90/56 (67) Pulse Ox 98 98 97 O2 Delivery Room Air Room Air Room Air Room Air 05/30/19 05/30/19 05/30/19 05/30/19 01:48 02:52 03:34 04:00 Temp 97.9 97.9 Pulse 65 65 74 Resp 16 16 16 B/P (MAP) 123/68 (86) 97/64 (75) 116/65 (82) Pulse Ox 96 97 97 O2 Delivery Room Air Room Air Room Air Room Air 05/30/19 05/30/19 05/30/1919 04:46 05:55 07:00 08:00 Temp 98.0 98.0 97.8 98.0 98.0 97.8 Pulse 64 68 62 Resp 16 18 20 B/P (MAP) 116/75 (89) 135/83 (100) 99/60 (73) Pulse Ox 98 98 98 O2 Delivery Room Air Room Air Room Air Room Air 05/30/19 05/30/19 05/30/19 05/30/19 08:00 08:25 09:17 11:00 Temp 97.9 97.9 Pulse 68 72 81 64 Resp 18 18 18 B/P (MAP) 122/76 (91) 122/76 133/90 (104) 131/62 (85) Pulse Ox 98 94 95 O2 Delivery Room Air Room Air Room Air Intake and Output 05/29/19 05/29/19 05/30/19 15:00 23:00 07:00 Intake Total 0 ml 1522 ml 180 ml Balance 0 ml 1522 ml 180 ml Images MR of the brain without contrast HISTORY: Right thalamic hemorrhage. TECHNIQUE: Axial T1-weighted, T2-weighted, FLAIR, gradient echo, diffusion-weighted, coronal T2-weighted and sagittal T1-weighted images are obtained. COMPARISON: None. Correlation with CT head of May 29. FINDINGS: Small focal area of increased T1 signal with surrounding mild T2/FLAIR edema signal is identified in the right thalamus, corresponding with the hematoma identified on CT scan. No evidence of acute intracranial infarction. No other areas of acute intracranial hemorrhage or abnormal extra-axial fluid collection or identified. Large area of CSF signal in the right frontal lobe compatible with encephalomalacia is identified, correlating with the CT findings. There is generalized atrophy. Diffuse and confluent white matter T2 and FLAIR signal is seen bilaterally, nonspecific but often due to chronic small vessel ischemic disease. Major intracranial vasculature demonstrates the expected flow void. Orbits appear unremarkable. Mucosal thickening of the right maxillary sinus. IMPRESSION: 1. Small right thalamic hematoma with surrounding edema, similar to what was seen on CT scan. 2. Large area of encephalomalacia in the right frontal lobe, correlates with CT finding. 3. Hyperintense FLAIR/T2 signal in the white matter bilaterally, nonspecific but often due to chronic small vessel ischemic disease. 4. Right maxillary sinus disease. CT ANGIOGRAPHY HEAD AND NECK Indication: Right thalamic hemorrhage. Exposure: One or more of the following individualized dose reduction techniques were utilized for this examination: 1. Automated exposure control 2. Adjustment of the mA and/or kV according to patient size 3. Use of iterative reconstruction technique. TECHNIQUE: Standard imaging obtained after intravenous contrast. MIP reconstructions were obtained. All carotid stenosis measurements are in conformance with NASCET-type methodology. Comparison: None are available. NECK: Mild atherosclerotic changes of the right carotid artery without occlusion or high-grade stenosis. There is some focal narrowing of the right proximal common carotid artery and an area of tortuosity. The right vertebral artery is patent in the neck. Mild atherosclerotic calcification of the left carotid artery which is patent. Left vertebral artery is patent. HEAD: Intracranial vascularity is grossly symmetric. Calcifications of the intracranial carotid arteries which are patent. Middle cerebral arteries are mildly irregular, likely of atherosclerotic etiology but grossly patent. Anterior cerebral arteries are patent. The right vertebral artery is very diminutive, with a dominant left vertebral artery. The right and left P1 segments are absent or hypoplastic, with origin of the posterior cerebral arteries bilaterally. 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 Series 4, image 829. There is mild widening of the terminal left internal carotid artery, could indicate a small fusiform aneurysm, series 4, image 775. There is no evidence of vascular malformation. No abnormal enhancement is seen in the expected location of the thalamic bleed. Nonvascular findings: Limited due to technique which was dedicated towards arterial evaluation. Lung apices demonstrate no consolidating infiltrate. Irregularity of the wall of the partially seen ascending aorta, likely pulsatility artifact. Ascending aorta measures 3.2 cm diameter compatible with mild ectasia. Irregular right thyroid mass measuring 15 mm with some associated calcification. Study is not protocoled for intracranial evaluation, the thalamic bleed is not well seen. Degenerative spondylosis of the spine. IMPRESSION: 1. Atherosclerotic changes without evidence of large vessel occlusive disease. 2. 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 3. 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 4. No abnormal enhancement in the region of the right thalamic bleed. 5. Right thyroid mass, could be further evaluated sonographically. MARIAMA COLÓN MD May 30, 2019 13:26
--- NOTE | 2019-05-30 17:17 | CARD ---
MR#: [id number] Date of Study: 05/30/2019 Ordering Physician: MARIAMA COLÓN, Referring Physician: MARIAMA COLÓN, Tech: Shanika Joseph [facility] APPROVED REPORT EXAM: Two-dimensional and M-mode echocardiogram with Doppler and color Doppler. Other Information Quality : Technically LimitedHR: 70bpm Rhythm : NSRTechnically limited study due to body habitus. INDICATION Hemorrhage 2D DIMENSIONS RVDd2.9 (2.9-3.5cm)Left Atrium(2D)2.8 (1.6-4.0cm) IVSd1.3 (0.7-1.1cm)Aortic Root(2D)2.5 (2.0-3.7cm) LVDd4.3 (3.9-5.9cm)LVOT Diameter1.8 (1.8-2.4cm) PWd1.0 (0.7-1.1cm)LVDs2.4 (2.5-4.0cm) FS (%) 44.1 %SV64.0 ml M-Mode DIMENSIONS Left Atrium(MM)3.43 (2.5-4.0cm)Aortic Root2.71 (2.2-3.7cm) Aortic Valve AoV Peak Rick.148.7cm/sAoV VTI27.1cm AO Peak GR.8.8mmHgLVOT VTI 22.55cm AO Mean GR.4mmHgAVA (VTI)2.20cm2 AI P 1/2 Xevo145xs Mitral Valve MV E Bmnlutja95.6cm/sMV DECEL [id number] MV A Xgrbnzkw951.4cm/sE/A Ratio0.8 MV A Djxedlbr56fl TDI Lateral E' P. V8.50cm/sMedial E' P. V9.40cm/s E/Lateral E'9.4E/Medial E'8.5 Tricuspid Valve TR P. Mweuqish617hp/sRAP [id number] TR Peak Gr.97yoKvSGIH15tbGk LEFT VENTRICLE The left ventricle is normal size. There is mild concentric left ventricular hypertrophy. Left ventri cular systolic function is normal. The Ejection Fraction is 60-65%. There is normal LV segmental wall motion. Transmitral Doppler flow pattern is Grade I-abnormal relaxation pattern. RIGHT VENTRICLE The right ventricle is normal size. There is normal right ventricular wall thickness. The right ventr icular systolic function is normal. ATRIA The left atrium size is normal. The right atrium size is normal. The interatrial septum is intact wit h no evidence for an atrial septal defect or patent foramen ovale as noted on 2-D or Doppler imaging. AORTIC VALVE The aortic valve is trileaflet. The aortic valve is not well visualized. Doppler and Color Flow revea led mild aortic regurgitation. There is no significant aortic valvular stenosis. There is no aortic v alvular vegetation. MITRAL VALVE The mitral valve is thickened but opens well. There is no evidence of mitral valve prolapse. There is no mitral valve stenosis. Doppler and Color-flow revealed trace mitral regurgitation. TRICUSPID VALVE The tricuspid valve is normal in structure and function. Doppler and Color Flow revealed trace tricus pid regurgitation. The PA pressure was estimated at 30 mmHg. There is no tricuspid valve prolapse or vegetation. There is no tricuspid valve stenosis. PULMONIC VALVE The pulmonic valve is not well visualized. GREAT VESSELS The aortic root is normal in size. The ascending aorta is normal in size. The IVC was not visualized. PERICARDIAL EFFUSION There is no evidence of significant pericardial effusion. Critical Notification Critical Value: No <Conclusion> The left ventricle is normal size. Left ventricular systolic function is normal. The Ejection Fraction is 60-65%. There is mild concentric left ventricular hypertrophy. There is no significant aortic valvular stenosis. Doppler and Color Flow revealed mild aortic regurgitation. Doppler and Color-flow revealed trace mitral regurgitation. Doppler and Color Flow revealed trace tricuspid regurgitation. The PA pressure was estimated at 30 mmHg. Signed by : Ralph Araujo MD Electronically Approved : 05/30/2019 17:17:20
[2019-05-30] MEDS: ATORVASTATIN CALCIUM 20 MG TABLET PO SCH (20:50)
[2019-05-31 07:00] VITALS: BP 162/82
[2019-05-31] MEDS: PANTOPRAZOLE 40 MG TABLET.DR. PO SCH (08:48)
[2019-05-31] MEDS: LOSARTAN POTASSIUM 50 MG TABLET. PO SCH (08:49)
[2019-05-31 11:00] VITALS: BP 130/79
[2019-05-31] MEDS ORDERED: HYDR12.575 PO (12:56)
[2019-05-31] MEDS ORDERED: AMLO5TAB4 PO (12:57)
--- NOTE | 2019-05-31 13:01 | PDOC3 ---
Discharge Summary Visit Information Date of Admission: May 29, 2019 Date of Discharge: May 31, 2019 Admitting Diagnosis Comment: small hemorrhagic CVA OLd large ischemic cva with encephalomalacia but clinically no residuals HTN emergency POA MOd PCM Final Diagnosis Problems Medical Problems: (1) Thalamic hemorrhage with stroke Status: Acute Brief Hospital Course Allergies Allergies Coded Allergies Type Severity Reaction Last Updated Verified No Known Drug Allergies 05/28/19 No Vital Signs Vital Signs Date Time Temp Pulse Resp B/P (MAP) Pulse Ox O2 Delivery O2 Flow Rate FiO2 05/31/19 11:00 98.3 66 18 130/79 (96) 100 Room Air 98.3 Lab Results Laboratory Tests Test 05/29/19 17:11 05/30/19 04:30 Magnesium Level 2.3 mg/dL (1.8-2.4) White Blood Count 4.3 x10^3/uL (4.0-11.0) Red Blood Count 4.46 x10^6/uL (3.50-5.40) Hemoglobin 13.8 g/dL (12.0-15.5) Hematocrit 41.4 % (36.0-47.0) Mean Corpuscular Volume 93 fL (79-100) Mean Corpuscular Hemoglobin 31 pg (25-35) Mean Corpuscular Hemoglobin Concent 33 g/dL (31-37) Red Cell Distribution Width 14.4 % (11.5-14.5) Platelet Count 174 x10^3/uL (140-400) Neutrophils (%) (Auto) 47 % (31-73) Lymphocytes (%) (Auto) 41 % (24-48) Monocytes (%) (Auto) 8 % (0-9) Eosinophils (%) (Auto) 3 % (0-3) Basophils (%) (Auto) 1 % (0-3) Neutrophils # (Auto) 2.0 x10^3/uL (1.8-7.7) Lymphocytes # (Auto) 1.8 x10^3/uL (1.0-4.8) Monocytes # (Auto) 0.4 x10^3/uL (0.0-1.1) Eosinophils # (Auto) 0.1 x10^3/uL (0.0-0.7) Basophils # (Auto) 0.0 x10^3/uL (0.0-0.2) Sodium Level 140 mmol/L (136-145) Potassium Level 3.9 mmol/L (3.5-5.1) Chloride Level 104 mmol/L (98-107) Carbon Dioxide Level 24 mmol/L (21-32) Anion Gap 12 (6-14) Blood Urea Nitrogen 11 mg/dL (7-20) Creatinine 1.2 mg/dL (0.6-1.0) Estimated GFR (Cockcroft-Gault) 43.0 Glucose Level 93 mg/dL (70-99) Calcium Level 8.6 mg/dL (8.5-10.1) Triglycerides Level 122 mg/dL (0-150) Cholesterol Level 117 mg/dL (0-200) LDL Cholesterol, Calculated 51 mg/dL (0-100) VLDL Cholesterol, Calculated 24 mg/dL (0-40) Non-HDL Cholesterol Calculated 75 mg/dL (0-129) HDL Cholesterol 42 mg/dL (40-60) Cholesterol/HDL Ratio 2.8 Brief Hospital Course Ms. Martinez is a 83 old female, no [place], son translates HTN emergency with small brain bleed on imaging, INterval scan no inc in size of bleed, MRI barin shows OLD infarcts - in past - son does not know about, no focal NDs on exam, NO PT needs., S.p cardene gtt in ICU On losartan 50 at home and compliant., I added some norvasc .5 mgs - hold if systolic < 120 mmhG at home. Incidental thyroid mass, US thyroid and tsh etc can be ff up as OP by PCP non emergently On CTA, some aneurysms that neuro sx says to ff up 6 mos with them with interval CTA head and neck - i have wrtitten scripts dw RN Pt seen and examined time 34 Discharge Information Condition at Discharge: Improved, Stable Follow Up: Weeks (6 mos neurosx with interval cta head and neck) Disposition/Orders: D/C to Home Scheduled Atorvastatin Calcium (Atorvastatin Calcium) 20 Mg Tablet, 1 TAB PO DAILY for high cholesterol, #30 Ref 5 (Reported) Entered as Reported by: BECCA ARCHIBALD on 05/29/19217 Last Action: Continued on 05/29/19910 by VIVIEN VILLANUEVA Hydrochlorothiazide (Hydrochlorothiazide Capsule ) 12.5 Mg Capsule, 12.5 MG PO DAILY for DIURETIC for 30 Days, #30 Ref 0 Prescribed by: VIVIEN VILLANUEVA on 05/31/19 1256 Losartan Potassium (Losartan Potassium) 50 Mg Tablet, 50 MG PO DAILY for HYPERTENSION, (Reported) Entered as Reported by: BECCA ARCHIBALD on 05/29/19217 Last Action: Continued on 05/29/19910 by VIVIEN VILLANUEVA Omeprazole (Omeprazole) 20 Mg Capsule.dr, 1 CAP PO DAILY for GERD, #30 Ref 5 (Reported) Entered as Reported by: BECCA ARCHIBALD on 05/29/19217 Last Action: Converted on 05/29/19910 by VIVIEN DAWN MD May 31, 2019 13:01
[2019-05-31 14:30] LABS: FREE T4 0.92 ng/dL (0.76-1.46); THYROID STIM HORMONE (TSH) 2.69 uIU/mL (0.358-3.74)
--- NOTE | 2019-05-31 14:38 | PDOC ---
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 Gonzalez's plan for followup CTA in 6 months Await echocardiogram Note plans to discharge home Subjective none Objective Vital Signs Date Time Temp Pulse Resp B/P (MAP) Pulse Ox O2 Delivery O2 Flow Rate FiO2 05/31/19 11:00 98.3 66 18 130/79 (96) 100 Room Air 98.3 Intake and Output 05/31/19 06:59 Intake Total 600 ml Output Total 200 ml Balance 400 ml Intake Oral 600 ml Output Urine Total 200 ml # Voids 7 # Bowel Movements 1 PHYSICAL EXAM Alert. Does not speak Kyrgyz, follows pantomimed exam PERRL. EOMI. CN: no focal findings. Muscle tone: normal. Muscle strength: 4/5 DTR: 2+ Plantar reflex: flexor Gait: not examined in bed. Sensory exam: no abnormal findings. No cerebellar signs elicited. Review of Relevant I have reviewed the following items luzmaria (where applicable) has been applied. Labs Laboratory Tests Test 05/29/19 17:11 05/30/19 04:30 Magnesium Level 2.3 mg/dL (1.8-2.4) White Blood Count 4.3 x10^3/uL (4.0-11.0) Red Blood Count 4.46 x10^6/uL (3.50-5.40) Hemoglobin 13.8 g/dL (12.0-15.5) Hematocrit 41.4 % (36.0-47.0) Mean Corpuscular Volume 93 fL (79-100) Mean Corpuscular Hemoglobin 31 pg (25-35) Mean Corpuscular Hemoglobin Concent 33 g/dL (31-37) Red Cell Distribution Width 14.4 % (11.5-14.5) Platelet Count 174 x10^3/uL (140-400) Neutrophils (%) (Auto) 47 % (31-73) Lymphocytes (%) (Auto) 41 % (24-48) Monocytes (%) (Auto) 8 % (0-9) Eosinophils (%) (Auto) 3 % (0-3) Basophils (%) (Auto) 1 % (0-3) Neutrophils # (Auto) 2.0 x10^3/uL (1.8-7.7) Lymphocytes # (Auto) 1.8 x10^3/uL (1.0-4.8) Monocytes # (Auto) 0.4 x10^3/uL (0.0-1.1) Eosinophils # (Auto) 0.1 x10^3/uL (0.0-0.7) Basophils # (Auto) 0.0 x10^3/uL (0.0-0.2) Sodium Level 140 mmol/L (136-145) Potassium Level 3.9 mmol/L (3.5-5.1) Chloride Level 104 mmol/L (98-107) Carbon Dioxide Level 24 mmol/L (21-32) Anion Gap 12 (6-14) Blood Urea Nitrogen 11 mg/dL (7-20) Creatinine 1.2 mg/dL (0.6-1.0) Estimated GFR (Cockcroft-Gault) 43.0 Glucose Level 93 mg/dL (70-99) Calcium Level 8.6 mg/dL (8.5-10.1) Triglycerides Level 122 mg/dL (0-150) Cholesterol Level 117 mg/dL (0-200) LDL Cholesterol, Calculated 51 mg/dL (0-100) VLDL Cholesterol, Calculated 24 mg/dL (0-40) Non-HDL Cholesterol Calculated 75 mg/dL (0-129) HDL Cholesterol 42 mg/dL (40-60) Cholesterol/HDL Ratio 2.8 Medications Current Medications Sodium Chloride 1,000 ml @ 1,000 mls/hr Q1H IV Last administered on 05/28/19at 21:57; Start 05/28/19 at 22:00; Stop 05/28/19 at 22:59; Status DC Meclizine HCl (Antivert) 25 mg 1X ONCE PO Last administered on 05/28/19at 21:57; Start 05/28/19 at 22:00; Stop 05/28/19 at 22:01; Status DC Ondansetron HCl (Zofran) 4 mg PRN Q8HRS PRN IV NAUSEA/VOMITING 1ST CHOICE; Start 05/28/19 at 23:15; Stop 05/29/19 at 09:12; Status DC Fentanyl Citrate (Fentanyl 2ml Vial) 25 mcg PRN Q1HR PRN IV SEVERE PAIN 7-10; Start 05/28/19 at 23:15; Stop 05/29/19 at 23:14; Status DC Sodium Chloride 1,000 ml @ 100 mls/hr Q10H IV Last administered on 05/29/19at 16:48; Start 05/28/19 at 23:30; Stop 05/29/19 at 17:12; Status DC Nicardipine HCl 50 mg/Sodium Chloride 250 ml @ 25 mls/hr CONT PRN IV SEE I/O RECORD Last administered on 05/29/19at 00:17; Start 05/29/19 at 00:15; Stop 05/29/19 at 14:24; Status DC Magnesium Sulfate 50 ml @ 25 mls/hr 1X ONCE IV Last administered on 05/29/19at 10:20; Start 05/29/19 at 09:30; Stop 05/29/19 at 11:29; Status DC Ondansetron HCl (Zofran) 4 mg PRN Q6HRS PRN IV NAUSEA/VOMITING 1ST CHOICE; Start 05/29/19 at 09:15; Stop 05/29/19 at 14:24; Status DC Acetaminophen (Tylenol) 500 mg PRN Q6HRS PRN PO MILD PAIN / TEMP Last administered on 05/29/19at 21:24; Start 05/29/19 at 09:15 Labetalol HCl (Normodyne Iv Push) 20 mg PRN Q2HR PRN IVP HYPERTENSION; Start 05/29/19 at 09:15; Stop 05/29/19 at 14:24; Status DC Atorvastatin Calcium (Lipitor) 20 mg QHS PO Last administered on 05/30/19at 20:50; Start 05/29/19 at 21:00 Losartan Potassium (Cozaar) 50 mg DAILY PO Last administered on 05/31/19at 08:49; Start 05/29/19 at 10:00 Pantoprazole Sodium (Protonix) 40 mg DAILYAC PO Last administered on 05/31/19at 08:49; Start 05/29/19 at 10:00 Info (Review Meds) 1 ea PRN 1X PRN MC SEE COMMENTS; Start 05/29/19 at 14:30 Acetaminophen (Tylenol Supp) 650 mg PRN Q6HRS PRN ND FEVER > 100.5'F; Start 05/29/19 at 14:30 Labetalol HCl (Normodyne Iv Push) 10 mg PRN Q10MIN PRN IVP HYPERTENSION, 1ST CHOICE Last administered on 05/29/19at 15:29; Start 05/29/19 at 14:30 Hydralazine HCl (Apresoline Inj) 10 mg PRN Q10MIN PRN IVP HYPERTENSION, 2ND CHOICE; Start 05/29/19 at 14:30 Nicardipine HCl 50 mg/Sodium Chloride 250 ml @ 25 mls/hr CONT PRN IV HYPERTENSION; Start 05/29/19 at 14:30; Stop 05/30/19 at 09:25; Status DC Ondansetron HCl (Zofran) 4 mg PRN Q6HRS PRN IV NAUSEA/VOMITING; Start 05/29/19 at 14:30 Iohexol (Omnipaque 300 Mg/ml) 60 ml 1X ONCE IV Last administered on 05/31/19at 08:50; Start 05/30/19 at 10:45; Stop 05/30/19 at 10:48; Status DC Info (CONTRAST GIVEN -- Rx MONITORING) 1 each PRN DAILY PRN MC SEE COMMENTS; Start 05/30/19 at 11:00; Stop 06/01/19 at 10:59 Active Scripts Active Norvasc (Amlodipine Besylate) 5 Mg Tablet 1 Tab PO DAILY Reported Omeprazole 20 Mg Capsule. 1 Cap PO DAILY Losartan Potassium 50 Mg Tablet 50 Mg PO DAILY Atorvastatin Calcium 20 Mg Tablet 1 Tab PO DAILY Vitals/I & O Vital Sign - Last 24 Hours 05/30/19 05/30/19 05/30/19 05/31/19 14:52 20:00 21:00 03:00 Temp 98.4 98.5 98.4 98.5 Pulse 76 72 76 Resp 20 20 20 B/P (MAP) 135/86 (102) 133/73 (93) Pulse Ox 94 95 94 O2 Delivery Room Air Room Air Room Air Room Air 05/31/19 05/31/19 05/31/19 05/31/19 07:00 08:00 08:49 11:00 Temp 98.3 98.3 98.3 98.3 Pulse 72 72 66 Resp 16 18 B/P (MAP) 162/82 (108) 162/82 130/79 (96) Pulse Ox 100 100 O2 Delivery Room Air Room Air Room Air Intake and Output 05/30/19 05/30/19 05/31/19 14:59 22:59 06:59 Intake Total 300 ml 300 ml Output Total 200 ml Balance -200 ml 300 ml 300 ml Images Echo: LEFT VENTRICLE The left ventricle is normal size. There is mild concentric left ventricular hypertrophy. Left ventricular systolic function is normal. The Ejection Fraction is 60-65%. There is normal LV segmental wall motion. Transmitral Doppler flow pattern is Grade I-abnormal relaxation pattern. RIGHT VENTRICLE The right ventricle is normal size. There is normal right ventricular wall thickness. The right ventricular systolic function is normal. ATRIA The left atrium size is normal. The right atrium size is normal. The interatrial septum is intact with no evidence for an atrial septal defect or patent foramen ovale as noted on 2-D or Doppler imaging. AORTIC VALVE The aortic valve is trileaflet. The aortic valve is not well visualized. Doppler and Color Flow revealed mild aortic regurgitation. There is no significant aortic valvular stenosis. There is no aortic valvular vegetation. MITRAL VALVE The mitral valve is thickened but opens well. There is no evidence of mitral valve prolapse. There is no mitral valve stenosis. Doppler and Color-flow revealed trace mitral regurgitation. TRICUSPID VALVE The tricuspid valve is normal in structure and function. Doppler and Color Flow revealed trace tricuspid regurgitation. The PA pressure was estimated at 30 mmHg. There is no tricuspid valve prolapse or vegetation. There is no tricuspid valve stenosis. PULMONIC VALVE The pulmonic valve is not well visualized. GREAT VESSELS The aortic root is normal in size. The ascending aorta is normal in size. The IVC was not visualized. PERICARDIAL EFFUSION There is no evidence of significant pericardial effusion. Critical Notification Critical Value: No <Conclusion> The left ventricle is normal size. Left ventricular systolic function is normal. The Ejection Fraction is 60-65%. There is mild concentric left ventricular hypertrophy. There is no significant aortic valvular stenosis. Doppler and Color Flow revealed mild aortic regurgitation. Doppler and Color-flow revealed trace mitral regurgitation. Doppler and Color Flow revealed trace tricuspid regurgitation. The PA pressure was estimated at 30 mmHg. MARIAMA COLÓN MD May 31, 2019 14:38
[2019-05-31 15:00] VITALS: BP 140/80
--- NOTE | 2019-05-31 16:04 | NUR ---
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 discharge instructions given to pts son, who is buggy man/corrosion control technician to the patient. verbalized understanding. questions answered. thyroid ultrasound completed and thyroid panel was drawn by lab. pt discharged to home.
--- NOTE | 2019-05-31 22:20 | CONS ---
DATE OF CONSULTATION: 05/31/2019 ATTENDING PHYSICIAN: Dr. Amaya. REASON FOR CONSULTATION: The patient was seen at the request of Dr. Gonzalez for rehab evaluation. HISTORY OF PRESENT ILLNESS: This is an 83-year-old female, right-handed, admitted through the Emergency Room on 05/29/2019 with dizziness, headache and weakness. CT scan of the brain revealed small right thalamic hemorrhage, which is stable across two scans. It also revealed old large right frontal infarct. She also developed some right eye visual problems. The patient with known hypertension, hyperlipidemia, gastroesophageal reflux disease, osteoarthritis. She does not communicate well with Italian. The patient is being followed by physical therapy and occupational therapy. She walked for about 200 feet with physical therapy yesterday. She had MRI scan of the brain done on 05/30/2019, which revealed small right thalamic hematoma with surrounding edema similar to what was seen on the CT scan and large area of encephalomalacia of the right frontal lobe, hyperintense signal in the white matter bilaterally, nonspecific, but may be due to chronic small vessel ischemic disease and right maxillary sinus disease. 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 No abnormal enhancement in the region of right thalamic bleed, right thyroid mass could be further evaluated sonographically. The patient apparently had no problems with swallowing and her left vision problem seems to be better as per nursing staff. PHYSICAL EXAMINATION: Physical examination today revealed an elderly female. She is awake, follows commands appropriately, moves all 4 extremities voluntarily but she seemed to have poor 4/5 to 4+/5 grade muscle strength. No obvious facial asymmetry noted. No obvious visual field cut noted. The patient had slightly exaggerated deep tendon reflexes on the left side with absent right ankle jerk. She seemed to have equal perception of touch and pinprick sensation bilaterally. She is not in a mood to get up right now, but as per physical therapy notes dated 05/30/2019 she required supervision for transfers, stand, step. Using a roller walker she walked for 200 feet without any loss of balance. Speech pathology felt like she had a functional swallow. Occupational therapy felt like she is doing satisfactorily. The patient had some muscular atrophy involving thenar eminence muscles in both hands. Negative Tinel sign over median nerve at the wrist. Her skin is intact at this time. Nursing staff reports no problems with bowel or bladder control. ASSESSMENT: An elderly female with previous cerebrovascular accident with new onset small right thalamic hemorrhage with some visual problems who seems to be better. 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 RECOMMENDATIONS: Agree with the plans for physical therapy and occupational therapy. Home when medically stable with outpatient followup. Dr. Gonzalez, I appreciate asking me to participate in the care of this interesting patient. I will be glad to see her for followup with you on as needed basis. JORGE MG MD DR: NNAMDI/corine JOB#: [id number] / [id number]
--- NOTE | 2019-06-01 09:07 | EKG ---
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
--- NOTE | 2019-06-01 10:53 | RAD ---
THYROID ULTRASOUND History: Right thyroid mass. Comparison: CT May 30, 2019. Technique: Multiple grayscale and color Doppler images of the thyroid gland were obtained. Findings: Right thyroid gland measures 4.0 x 1.3 x 1.6 cm. Normal echotexture. Left thyroid lobe measures 3.6 x 1.5 x 1.6 cm with normal echotexture. Right inferior thyroid hypoechoic solid nodule with punctate calcifications measures 1.7 x 1.1 cm. Calcified nodule within the right aspect of the isthmus measures 1.2 x 0.8 x 0.8 cm. Calcification degrades evaluation of the remainder of the nodule. ACR Thyroid Imaging, Reporting And Data System (TI-RADS): White Paper Of The ACR TI-RADS Committee. Journal of the [place] [employer], volume 14, issue 5, pages 587-595 (January 2017). IMPRESSION: 1. TI-RADS 4 right inferior thyroid nodule. Recommend fine needle aspiration to further evaluate. 2. Calcified right isthmus nodule. Recommend attention on follow-up. Electronically signed by: Nj Perez DO (06/01/2019 10:50 AM) [id number]
== END 2019-05-31 16:04 | disposition home or self-care (01) | DRG 65 ==
LOC: ER 21:27 → 1 WEST ICU 23:05
PROVIDERS: ADMIT Family Medicine; ATTEND Family Medicine
DX: I61.8 Other nontraumatic intracerebral hemorrhage (principal); I16.1 Hypertensive emergency; E44.0 Moderate protein-calorie malnutrition; I10 Essential (primary) hypertension; M19.90 Unspecified osteoarthritis, unspecified site; G93.89 Other specified disorders of brain; H54.61 Unqualified visual loss, right eye, normal vision left eye; J32.0 Chronic maxillary sinusitis; E07.9 Disorder of thyroid, unspecified; E78.5 Hyperlipidemia, unspecified; K21.9 Gastro-esophageal reflux disease without esophagitis; Z86.73 Personal history of transient ischemic attack (TIA), and cerebral infarction without residual deficits; Z82.49 Family history of ischemic heart disease and other diseases of the circulatory system; Z68.27 Body mass index [BMI] 27.0-27.9, adult
CPT/HCPCS: 36415; 70450; 70496; 70498; 70551; 71045; 76536; 80048; 80053; 80061; 81001; 83735; 83880; 84439; 84443; 84481; 84484; 85025; 87086; 93005; 93306; 96365; J3475; J3490; J7030; J7050; J8597; Q9967; 92610; 99285-25; G0378